=== PATIENT | female | born 1940 | race Caucasian/White ===

== ENCOUNTER 2017-03-25 15:29 | Inpatient (IN) ==
--- NOTE | 2017-03-25 15:48 | Emergency Department Report ---
Medical Clearance HPI - General Chief complaint: Medical Clearance Stated complaint: [facility] Time Seen by Provider: 03/25/17 15:44 Source: patient Mode of arrival: ambulatory Limitations: no limitations - History of Present Illness HPI Narrative: She presents to ER today for medical clearance. She has been working with the [facility] for admission due to depression and anxiety. Had been evaluated in ER a week ago but had a UTI and so was sent home with treatment and advised to come back after it was fully treated. She denies any issues/ concerns today. MD complaint: medical clearance requested Onset (ago): unknown Place: home Traumatic Symptoms: denies traumatic injury Associated Symptoms: denies other symptoms Treatments Prior to Arrival: none Home medications: Home Medications Medication Instructions Recorded Confirmed Simvastatin [Zocor] 20 mg PO DAILY #0 06/13/08 03/25/17 cloNIDine HCl [Clonidine HCl] 0.1 mg PO NOON #0 06/13/08 03/25/17 Cholecalciferol (Vitamin D3) 1,000 unit PO DAILY 03/19/17 03/25/17 [Vitamin D3] Cyclobenzaprine [Flexeril] 10 mg PO TID PRN 03/19/17 03/25/17 Diclofenac Sodium 50 mg PO BID 03/19/17 03/25/17 Escitalopram [Lexapro] 10 mg PO DAILY 03/19/17 03/25/17 Fish Oil/Dha/Epa [Fish Oil 1,200 1 cap PO DAILY 03/19/17 03/25/17 mg Fish Oil] Metoprolol Tartrate [Lopressor] 25 mg PO BID 03/19/17 03/25/17 Trazodone [Desyrel] 50 mg PO HS 03/19/17 03/25/17 diphenhydrAMINE HCl [Zzzquil] 25 mg PO HS PRN 03/25/17 03/25/17 Allergies/Adverse reactions: Allergies Allergy/AdvReac Type Severity Reaction Status Date / Time codeine AdvReac Unknown Verified 03/19/17 14:19 Review of Systems ENT: Denies: ear pain, throat pain, congestion Cardiovascular: Denies: chest pain, palpitations, dyspnea on exertion Respiratory: Denies: cough, dyspnea, wheezes Gastrointestinal: Denies: abdominal pain, nausea, vomiting, diarrhea Integumentary: Denies: rash Neurological: Denies: headache, weakness, numbness, paresthesias [facility] Patient Stated Medical History Other HEENT Yes: Wears glasses Hypertension Yes Other GI Yes: IBS, gallstones Hx Urinary Tract Infection Yes Other Hematologic Yes: Daily 81mg ASA Other Musculoskeletal Yes: Fx fibula, arthritis Depression Yes Anxiety - Social History Smoking status: Never smoker Physical Exam - Limitations Limitations: no limitations - General General appearance: alert, in no apparent distress - Normal Exams: ENMT:: No facial trauma, nasal exudates, pharyngeal erythema, or exudates are noted Chest/Respirations:: Clear all borges, with good airflow, and symmetry bilaterally Cardiovascular:: Regular rate and rhythm, without murmur or gallop, Pulses 2+ all extremities, capillary refill, <2 seconds all extremities Abdomen:: Bowel sounds positive, soft, non-tender, non-distended, no hepatosplenomegaly, masses or bruits noted Lymphatic:: No lymphadenopathy, or lymphedema noted Integumentary:: No rashes, hives, or bruising noted Neurological:: Patient is alert, and oriented, cranial nerves, motor/sensory/ cerebellar, exams w/o gross deficits, to observation Psychiatric:: Patient exhibits, appropriate attention, emotion and affect Course Vital Signs Temperature 97.7 F 03/25/17 15:42 Pulse Rate 75 03/25/17 15:42 Respiratory Rate 20 03/25/17 15:42 Blood Pressure 164/71 H 03/25/17 15:42 Pulse Oximetry 99 03/25/17 15:42 Temperature 97.7 F 03/25/17 15:42 Pulse Rate 75 03/25/17 15:42 Respiratory Rate 20 03/25/17 15:42 Blood Pressure 164/71 H 03/25/17 15:42 Pulse Oximetry 99 03/25/17 15:42 Medical Clearance - [facility] Narrative Medical decision making narrative: DD: anxiety, depression Labs and UA today are clear. Will medically clear at this time for [facility] admission. - Differential Diagnosis Likely: urinary tract infection - Lab Data Result diagrams: 03/25/17 16:07 03/25/17 16:07 Lab Results 03/25/17 03/25/17 03/25/17 Range/Units 16:05 16:07 16:07 WBC 5.9 (4.5-11.0) T/MM3 RBC 3.65 L (4.00-5.20) M/MM3 Hgb 11.1 L (12-16) GM/DL Hct 32.9 L (36-46) % MCV 90.1 (80-100) UM3 MCH 30.4 (26-34) UUG MCHC 33.7 (31-37) GM/DL RDW Std Deviation 37.5 (36.9-50.2) FL Plt Count 329 (130-400) T/MM3 MPV 8.8 L (9.4-12.4) UM3 Immature Gran % (Auto) 0.3 (0.0-0.5) % Neut % (Auto) 57.1 (33-66) % Lymph % (Auto) 26.3 (23-45) % [place] % (Auto) 14.0 H (0-9.0) % Eos % (Auto) 2.0 (0-4) % Baso % (Auto) 0.3 (0-2) % Neut # (Auto) 3.3 (1.8-7.7) T/MM3 Lymph # (Auto) 1.5 (1-4.8) T/MM3 [place] # (Auto) 0.8 (0-0.8) T/MM3 Eos # (Auto) 0.1 (0-0.5) T/MM3 Baso # (Auto) 0.0 (0-0.2) T/MM3 Abs Immat Gran (auto) 0.02 (0.00-0.03) T/MM3 Turbidity < 20 (0-20) Sodium 131 L (134-144) MEQ/L Potassium 4.1 (3.6-5) MEQ/L Chloride 94 L (98-107) MEQ/L Carbon Dioxide 30 (22-30) MEQ/L Anion Gap 7 (5-15) MEQ/L BUN 16.0 (7-17) MG/DL Creatinine 0.9 (0.7-1.2) MG/DL GFR Calculation 61 BUN/Creatinine Ratio 18 (6-26) RATIO Glucose 115 H (65-110) MG/DL Calculated Osmolality 255 L (261-280) MOSM/KG Calcium 9.2 (8.4-10.2) MG/DL Total Bilirubin 0.30 (0.20-1.30) MG/DL Icterus Index < 2 (0-7) AST 18 (14-36) U/L ALT 33 (9-52) U/L Alkaline Phosphatase 95 (38-126) U/L Total Protein 6.7 (6.3-8.2) G/DL Albumin 3.6 (3.5-5.0) G/DL Globulin 3.1 (2.4-3.6) G/DL Albumin/Globulin Ratio 1.2 (1.1-2.2) RATIO Specimen Hemolysis < 15 (0-25) Ur Collection Type Urine, clean catch Urine Color Yellow (YELLOW) Urine Clarity Clear Urine pH 7.5 (5.0-8.0) Ur Specific [place] <=1.005 L (1.015-1.025) Urine Protein Negative (NEGATIVE) Urine Glucose (UA) Negative (NEGATIVE) Urine Ketones Negative (NEGATIVE) Urine Occult Blood Negative (NEGATIVE) Urine Nitrate Negative (NEGATIVE) Urine Bilirubin Negative (NEGATIVE) Urine Urobilinogen 0.2 (NORMAL) EU/DL Ur Leukocyte Esterase Negative (NEGATIVE) Urinalysis Comment Microscopic not ind. Disposition Clinical Impression: Depression Qualifiers: Depression Type: other depression Qualified Code(s): F32.89 - Other specified depressive episodes Disposition: 63 To [facility] Condition: Stable Prescriptions: No Action Simvastatin [Zocor] 20 mg PO DAILY #0 Metoprolol Tartrate [Lopressor] 25 mg PO BID Diclofenac Sodium 50 mg PO BID Escitalopram [Lexapro] 10 mg PO DAILY Trazodone [Desyrel] 50 mg PO HS Cholecalciferol (Vitamin D3) [Vitamin D3] 1,000 unit PO DAILY cloNIDine HCl [Clonidine HCl] 0.1 mg PO NOON #0 Cyclobenzaprine [Flexeril] 10 mg PO TID PRN PRN Reason: Prn Orders Fish Oil/Dha/Epa [Fish Oil 1,200 mg Fish Oil] 1 cap PO DAILY diphenhydrAMINE HCl [Zzzquil] 25 mg PO HS PRN PRN Reason: Insomnia Referrals: Philippe Hood MD [Other] Time of Disposition: 16:43 - Seen By: [facility]
[2017-03-25] MEDS ORDERED: HYDROCODONE/APAP 5mg/325mg TABLET PO ONE (16:22)
[2017-03-25] MEDS ORDERED: HALOPERIDOL 0.5 MG TABLET PO PRN (16:47)
[2017-03-25] MEDS ORDERED: HALOPERIDOL 5 MG/ML INJECTION IM PRN (16:47)
[2017-03-25 17:24] VITALS: BMI 22.8
[2017-03-25] MEDS: LORazepam 0.5 MG TABLET PO PRN (19:03)
--- NOTE | 2017-03-25 19:21 | 24 Hour Neuropsychiatic Eval ---
Date of Admission: 03/25/17 16:56 Chief complaint: "Im depressed" History of Present Illness: HPI: 76 Y/O CF with a hx of anxiety and depression sent from [place] where she was living independently for increasing depression and morbid thoughts. STRESSORS: Pt states she has been dealing with knee pain and will have knee replacement soon. She is planning to move to [place] soon which is stressful. Worries about being a burden for her kids. PSYCH ROS: Pt reports feeling depressed with low interest and motivation and increased need for sleep. She reports some issues staying asleep. She reports having high anxiety and some panic type symptoms at times. She denies [place] or psychosis. PAST PSYCH: She has a hx of anxiety and depression. States she was seen at her local mental health center about 5 years ago. She hs recently been on lexapro and Trazodone which she feels have been helpful. She denies ever trying to harm herself and has never been in a psychiatric hospital. [facility] Patient Stated Medical History Other HEENT Yes: Wears glasses Hypertension Yes Other GI Yes: IBS, gallstones Hx Urinary Tract Infection Yes Other Hematologic Yes: Daily 81mg ASA Other Musculoskeletal Yes: Fx fibula, arthritis Depression Yes - Social History Smoking status: Never smoker Review of Systems - Musculoskeletal Musculoskeletal: Present: joint swelling - Psychiatric Psychiatric: Present: anhedonia, anxiety, depression, mood swings Mental Status Exam Vitals: Last Vital Signs Temp 97.5 F 03/25/17 17:10 Pulse 76 03/25/17 17:10 Resp 20 03/25/17 17:10 BP 142/76 H 03/25/17 17:10 Pulse Ox 99 03/25/17 17:10 Height: 1.68 m Weight: 64.3 kg - Mental Status Exam Muscle Strength/Tone: Normal Dressing: Casual Grooming: Good Attitude: Cooperative Motor Activity: Retardation Eye Contact: Fair Speech: Slowed Volume: Soft Rhythm: Appropriate Rhythm Orientation: Oriented X4 Mood: Depressed Affect: Depressed Rate of Thoughts: Appropriate Rate, Delayed Thought Organization: Organized Associations: Intact Abstract Reasoning: Intact, able to abstract Thought Content: Normal, Helplessness Perception/Psychotic: Perception Normal Language: Naming Intact Fund of Knowledge: Appropriate Memory: Grossly Intact Suicidal Ideation: Intermittent Homicidal Ideation: None Insight: Poor Judgement: Poor Impulse Control: Poor - Laboratory Result Diagrams: 03/25/17 16:07 03/25/17 16:07 Assessment and Plan (1) Major depressive disorder, recurrent episode with anxious distress Problem details: Severe Current visit: Yes Status: Acute Continue to evaluate and stabilize. Will restart Trazodone and increase Lexapro to 20mg PO daily. Hospitalist consult
[2017-03-25] MEDS: TRAZODONE 50 MG TABLET PO SCH (20:42)
[2017-03-25] MEDS: SIMVASTATIN 20 MG TABLET PO SCH (20:42)
[2017-03-25] MEDS: ACETAMINOPHEN 325 MG TABLET PO PRN (20:49)
[2017-03-26] MEDS: ACETAMINOPHEN 325 MG TABLET PO PRN (03:45)
[2017-03-26] MEDS: DICLOFENAC SODIUM DR 25 MG TABLET PO SCH ×2 (08:47→17:15)
[2017-03-26] MEDS: ESCITALOPRAM 20 MG TABLET PO SCH (08:50)
[2017-03-26] MEDS ORDERED: PNEUMOCOCCAL 13 VACCINE 0.5ml INJECTION IM ONE (09:00)
[2017-03-26] MEDS ORDERED: ESCITALOPRAM 10 MG TABLET PO SCH ×2 (09:00)
--- NOTE | 2017-03-26 10:43 | Progress Note ---
- Date 03/26/17 Subjective: Patient is seen today sitting in the TV room. She is having knee pain which Tylenol is not controlling. She is scheduled to have surgery April 08. She reports her regular doctor has given her Lortab for pain in the past. She tolerates it well per her report. She would be willing to try Lidoderm patches as well. No chest pain, shortness of breath, nausea or vomiting. Overall reports she's doing well other than her knee pain. Objective Vital signs: Temperature 97.0 F 03/26/17 08:45 Pulse Rate 100 03/26/17 08:45 Respiratory Rate 18 03/26/17 08:45 Blood Pressure 146/70 H 03/26/17 08:45 Pulse Oximetry 98 03/26/17 08:45 Height/Weight/BMI: Height 1.68 m Weight 64.3 kg Body Mass Index 22.8 - Constitutional Present: no acute distress, well nourished, well developed - Routine HEENT Exam Head: Present: normocephalic - Routine Respiratory Exam Present: CTA bilaterally. Absent: wheezes - Routine Cardiovascular Exam Present: RRR, S1, S2. Absent: murmur - Routine Abdominal Exam Present: soft, normoactive bowel sounds, non distended. Absent: tenderness - Routine Extremities Exam Present: no edema, normal capillary refill - Routine Musculoskeletal Exam Musculoskeletal: Present: other (degenerative deformity to right knee. No effusion or erythema or warmth.) - Routine Skin Exam Present: dry, warm - Routine Neurological Exam Present: alert, normal speech - Routine Lymphatic Exam Lymphatic: Absent: adenopathy - Routine Psychiatric Exam Present: normal affect, cooperative Results - Labs CBC & Chem 7: 03/25/17 16:07 03/25/17 16:07 Hospital Course Summary Disclaimer: The visit summary below is not to be considered part of the above Progress Note.
--- NOTE | 2017-03-26 10:49 | History & Physical Report ---
<Marisa Fong - Last Filed: 03/26/17 11:16> History of Present Illness Date: 03/26/17 Chief complaint: depression and anxiety HPI: Patient is a 76-year-old female admitted to [facility] yesterday afternoon due to depression and anxiety. She lives alone in her own home in [place], [place]. She has been more anxious and depressed. Her daughter visited her on 03/14/17 and brought patient home with her due to concerns about the severity of her mom' s depression and anxiety. Patient is anxious about upcoming knee surgery, future plans, and possible move. She worries about being a burden to her family. She's not been sleeping well. She's had a 6-7 pound weight loss in the last 1-1/2 months. Patient recently established care with Dr. Flash Arzola in [place]. There is mention in his office visit that there may be some underlying dementia. She has had a recent UTI which has been treated. She's been having some palpitations but no chest pain. Her doctor offered a Holter monitor, but daughter and patient preferred to wait until after she had her mental health evaluation, thinking the palpitations may be related to nightmares she's been having. Patient is seen today sitting in the TV room. She is having knee pain which Tylenol is not controlling. She is scheduled to have surgery April 08. She reports her regular doctor has given her Lortab for pain in the past. She tolerates it well per her report. She would be willing to try Lidoderm patches as well. No chest pain, shortness of breath, nausea or vomiting. Overall reports she's doing well other than her knee pain. Review of Systems All systems PM: 10-point ROS was reviewed, no additional remarkable complaints except - Constitutional Constitutional: Present: other (insomnia and nightmares) - Cardiovascular Cardiovascular: Present: palpitations - Musculoskeletal Musculoskeletal: Present: other (right knee pain) - Psychiatric Psychiatric: Present: anxiety, depression PFSH Medical History Anxiety Depression Hypertension Hyperlipidemia Osteoarthritis Insomnia IBS/Constipation Surgical History: Cholecystectomy 06/07/97 Family History: Father age 75 of appendicitis. CVA. Mother at age 83 due to complications of CHF - Social History Smoking status: Never smoker Substance use type: does not use Alcohol intake frequency: does not drink Housing: house Household members: none Current occupational status: retired Does patient use chewing tobacco?: No Social history: PCP-Flash Arzola D.O. ([facility]) Medications Home Medications Medication Instructions Recorded Confirmed Type Simvastatin [Zocor] 20 mg PO DAILY #0 06/13/08 03/25/17 History cloNIDine HCl [Clonidine HCl] 0.1 mg PO NOON #0 06/13/08 03/25/17 History Cholecalciferol (Vitamin D3) 1,000 unit PO DAILY 03/19/17 03/25/17 History [Vitamin D3] Cyclobenzaprine [Flexeril] 10 mg PO TID PRN 03/19/17 03/25/17 History Diclofenac Sodium 50 mg PO BID 03/19/17 03/25/17 History Escitalopram [Lexapro] 10 mg PO DAILY 03/19/17 03/25/17 History Fish Oil/Dha/Epa [Fish Oil 1,200 1 cap PO DAILY 03/19/17 03/25/17 History mg Fish Oil] Metoprolol Tartrate [Lopressor] 25 mg PO BID 03/19/17 03/25/17 History Trazodone [Desyrel] 50 mg PO HS 03/19/17 03/25/17 History diphenhydrAMINE HCl [Zzzquil] 25 mg PO HS PRN 03/25/17 03/25/17 History Allergies Allergy/AdvReac Type Severity Reaction Status Date / Time codeine AdvReac Unknown Verified 03/19/17 14:19 Exam Vital Signs: Temperature 97.0 F 03/26/17 08:45 Pulse Rate 100 03/26/17 08:45 Respiratory Rate 18 03/26/17 08:45 Blood Pressure 146/70 H 03/26/17 08:45 Pulse Oximetry 98 03/26/17 08:45 Height/Weight/BMI: Height 1.68 m Weight 64.3 kg Body Mass Index 22.8 - Constitutional Present: no acute distress, well nourished, well developed - Routine HEENT Exam Head: Present: normocephalic - Routine Neck Exam Present: supple. Absent: lymphadenopathy - Routine Respiratory Exam Present: CTA bilaterally. Absent: wheezes - Routine Cardiovascular Exam Present: RRR, S1, S2. Absent: murmur - Routine Abdominal Exam Present: soft, normoactive bowel sounds, non distended. Absent: tenderness - Routine Extremities Exam Present: no edema, normal capillary refill - Detailed Lower Extremity Exam Knee: Right deformity (related to degenerative arthritis) Comments: She has no redness or warmth or effusion to the right knee. - Routine Skin Exam Present: dry, warm - Routine Neurological Exam Present: alert, moving all extremities, normal speech. Absent: tremors - Routine Psychiatric Exam Present: normal affect, normal thought process, cooperative Results - Labs CBC & Chem 7: 03/25/17 16:07 03/25/17 16:07 Assessment and Plan (1) Major depressive disorder, recurrent episode with anxious distress Problem details: Severe Current visit: Yes Status: Acute Assessment and Plan: Assessment Anxiety Depression Hyponatremia-POA Anemia, unspecified Hypertension Palpitations Hyperlipidemia Osteoarthritis- Right Knee pain currently IBS Plan Agree with [facility] admission for psychiatric treatment of her depression and anxiety. Continue home medicines for her hypertension and hyperlipidemia. Tylenol is not controlling her knee pain. She is taking diclofenac routinely. Order given for Lidoderm patches and [place] prn. Regarding her anemia, previous hemoglobin on 03/15/17 was 12.9. Will recheck a CBC and continue to follow. Will start ranitidine for GI prophylaxis given that she is on the diclofenac. Assuming she is not dropping significantly during her stay, this can be worked up outpatient. Repeat BMP tomorrow to follow-up on sodium levels. Sodium level on 03/15/17 was 129, but in 2012 was 141. This could be related to her SSRI. Given her palpitations, will check a TSH. Last record of TSH that I could find was 2012. It was normal at 3.5. We will continue to follow patient throughout her stay. Thank you for the consult. Patient's care to be returned to Dr. Flash Harvey on discharge. Hospital Course Summary Disclaimer: The visit summary below is not to be considered part of the above Progress Note. Hospital Course: Assessment Anxiety Depression Hyponatremia-POA Anemia, unspecified Hypertension Palpitations Hyperlipidemia Osteoarthritis- Right Knee pain currently IBS 03/26/17-hospitalist consult Agree with [facility] admission for psychiatric treatment of her depression and anxiety. Continue home medicines for her hypertension and hyperlipidemia. Tylenol is not controlling her knee pain. She is taking diclofenac routinely. Order given for Lidoderm patches and [place] prn. Regarding her anemia, previous hemoglobin on 03/15/17 was 12.9. Will recheck a CBC and continue to follow. Will start ranitidine for GI prophylaxis given that she is on the diclofenac. Assuming she is not dropping significantly during her stay, this can be worked up outpatient. Repeat BMP tomorrow to follow-up on sodium levels. Sodium level on 03/15/17 was 129, but in 2012 was 141. This could be related to her SSRI. Given her palpitations, will check a TSH. Last record of TSH that I could find was 2012. It was normal at 3.5. We will continue to follow patient throughout her stay. Thank you for the consult. Patient's care to be returned to Dr. Flash Harvey on discharge. <Elza Paris - Last Filed: 03/26/17 18:24> History of Present Illness Date: 03/26/17 [facility] Patient Stated Medical History Other HEENT Yes: Wears glasses Hypertension Yes Other GI Yes: IBS, gallstones Hx Urinary Tract Infection Yes Other Hematologic Yes: Daily 81mg ASA Other Musculoskeletal Yes: Fx fibula, arthritis Depression Yes Exam Vital Signs: Temperature 96.6 F L 03/26/17 15:59 Pulse Rate 80 03/26/17 15:59 Respiratory Rate 18 03/26/17 15:59 Blood Pressure 131/70 03/26/17 15:59 Pulse Oximetry 100 03/26/17 15:59 Height/Weight/BMI: Height 5 ft 6 in Weight 141 lb 12.116 oz Body Mass Index 22.8 Results - Labs CBC & Chem 7: 03/25/17 16:07 03/25/17 16:07 Assessment and Plan (1) Major depressive disorder, recurrent episode with anxious distress Problem details: Severe Current visit: Yes Status: Acute Assessment and Plan: I have independently evaluated and examined this patient. I reviewed the chart, the patient's history, and the FLARE BREAKER/PA's documented findings as above. We discussed and formulated the assessment and plan as above with additions as below. The patient was seen sitting in the common room. She does complain of right knee pain and would like to have her surgery done sooner if at all possible. Otherwise without complaints. In general, the patient is alert and oriented 3, cooperative with exam, and in no respiratory distress. HEENT: Head is atraumatic, normocephalic, no conjunctival petechiae, no oral thrush, mucous membranes are moist and pink. Lungs: Clear to auscultation without wheezes, crackles or rhonchi CV: Regular rate and rhythm without murmur Abdomen: Soft, nontender, bowel sounds are present, there is no guarding no rebound. Extremities: No clubbing, no cyanosis, no edema. Right knee with swelling, brace in place Skin: Warm and dry no sign of rash Agree with plans as outlined above. Hospital Course Summary Disclaimer: The visit summary below is not to be considered part of the above Progress Note.
[2017-03-26] MEDS: HYDROCODONE/APAP 5mg/325mg TABLET PO PRN (12:31)
[2017-03-26] MEDS: LIDOCAINE 5% PATCH TOP SCH (12:32)
[2017-03-26] MEDS: Bisacodyl EC TAB 5 MG TABLET PO PRN (12:35)
[2017-03-26] MEDS ORDERED: PNEUMOCOCCAL VAC ADMIN CHARGE INJ ONE (12:54)
--- NOTE | 2017-03-26 18:17 | Neuropsych Progress Note ---
[facility] Subjective Date: 03/26/17 - Sujective/Severity of Illness Medications: Acetaminophen (Tylenol) 325 - 650 mg PO Q5H PRN PRN Reason: Discomfort Last Admin: 03/26/17 03:45 Dose: 650 mg Hydrocodone Bitart/Acetaminophen ([place] 5/325) 1 tab PO Q4H PRN PRN Reason: right knee Pain Last Admin: 03/26/17 12:31 Dose: 1 tab Bisacodyl (Dulcolax) 10 mg PO DAILY PRN PRN Reason: Constipation Last Admin: 03/26/17 12:35 Dose: 10 mg Clonidine HCl (Catapres) 0.1 mg PO NOON [facility] Last Admin: 03/26/17 12:09 Dose: 0.1 mg Diclofenac Sodium (Voltaren) 50 mg PO BIDWM [facility] Last Admin: 03/26/17 17:15 Dose: 50 mg Escitalopram Oxalate (Lexapro) 20 mg PO DAILY [facility] Last Admin: 03/26/17 08:50 Dose: 20 mg Haloperidol (Haldol) 0.5 mg PO Q6H PRN PRN Reason: Extreme agitation Haloperidol Lactate (Haldol) 0.5 mg IM Q6H PRN PRN Reason: Extreme agitation Lidocaine (Lidoderm) 1 patch TOP DAILY [facility] Last Admin: 03/26/17 12:32 Dose: 1 patch Lidocaine HCl/Dextrose (Lidoderm Patch Removal) 1 removal TOP 2100 [facility] Lorazepam (Ativan Inj) 0.5 mg IM Q6H PRN PRN Reason: Extreme agitation Lorazepam (Ativan) 0.5 mg PO Q6H PRN PRN Reason: Extreme agitation Last Admin: 03/25/17 19:03 Dose: 0.5 mg Magnesium Hydroxide (Mom) 30 ml PO DAILY PRN PRN Reason: Constipation Last Admin: 03/25/17 18:32 Dose: 30 ml Metoprolol Tartrate (Lopressor) 25 mg PO BIDWM [facility] Last Admin: 03/26/17 17:15 Dose: 25 mg Ranitidine HCl (Zantac) 150 mg PO BID [facility] Simvastatin (Zocor) 20 mg PO HS [facility] Last Admin: 03/25/17 20:42 Dose: 20 mg Trazodone HCl (Desyrel) 50 mg PO HS [facility] Last Admin: 03/25/17 20:42 Dose: 50 mg Subjective: Pt seen and chart examined. Nursing reports pt is doing well. Sleeping well and has a good appetite. On face to face the pt states she feels a little better. Mood improved. Some anxiety at times but it is short lived. Tolerating increase in meds. Denies S/I Start Time: 17:15 Stop Time: 17:30 Mental Status Exam Vitals: Last Vital Signs Temp 96.6 F L 03/26/17 15:59 Pulse 80 03/26/17 15:59 Resp 18 03/26/17 15:59 BP 131/70 03/26/17 15:59 Pulse Ox 100 03/26/17 15:59 Height: 1.68 m Weight: 64.3 kg - Mental Status Exam Muscle Strength/Tone: Normal Dressing: Casual Grooming: Good Attitude: Cooperative Motor Activity: Retardation Eye Contact: Fair Speech: Slowed Volume: Soft Rhythm: Appropriate Rhythm Orientation: Oriented X4 Mood: Depressed Rate of Thoughts: Appropriate Rate, Delayed Thought Organization: Organized Associations: Intact Abstract Reasoning: Intact, able to abstract Thought Content: Normal, Helplessness Perception/Psychotic: Perception Normal Language: Naming Intact Fund of Knowledge: Appropriate Memory: Grossly Intact Suicidal Ideation: Intermittent Homicidal Ideation: None Insight: Poor Judgement: Poor Impulse Control: Poor - Laboratory Result Diagrams: 03/25/17 16:07 03/25/17 16:07 Assessment and Plan (1) Major depressive disorder, recurrent episode with anxious distress Problem details: Severe Current visit: Yes Status: Acute Hospital Course Summary Disclaimer: The visit summary below is not to be considered part of the above Progress Note. Hospital Course: Assessment Anxiety Depression Hyponatremia-POA Anemia, unspecified Hypertension Palpitations Hyperlipidemia Osteoarthritis- Right Knee pain currently IBS 03/26/17-hospitalist consult Agree with [facility] for psychiatric treatment of her depression and anxiety. Continue home medicines for her hypertension and hyperlipidemia. Tylenol is not controlling her knee pain. She is taking diclofenac routinely. Order given for Lidoderm patches and [place] prn. Regarding her anemia, previous hemoglobin on 03/15/17 was 12.9. Will recheck a CBC and continue to follow. Will start ranitidine for GI prophylaxis given that she is on the diclofenac. Assuming she is not dropping significantly during her stay, this can be worked up outpatient. Repeat BMP tomorrow to follow-up on sodium levels. Sodium level on 03/15/17 was 129, but in 2012 was 141. This could be related to her SSRI. Given her palpitations, will check a TSH. Last record of TSH that I could find was 2012. It was normal at 3.5. We will continue to follow patient throughout her stay. Thank you for the consult. Patient's care to be returned to Dr. Flash Harvey on discharge. 03/26/17 18:17 Pt improving. Continue current care
[2017-03-26] MEDS: SIMVASTATIN 20 MG TABLET PO SCH (22:07)
[2017-03-26] MEDS: RANITIDINE 150 MG TABLET PO SCH (22:07)
[2017-03-26] MEDS: TRAZODONE 50 MG TABLET PO SCH (22:07)
[2017-03-26] MEDS: LIDOCAINE PATCH REMOVAL TOP SCH (22:08)
[2017-03-27] MEDS: HYDROCODONE/APAP 5mg/325mg TABLET PO PRN ×3 (03:51→22:16)
[2017-03-27] MEDS ORDERED: BISACODYL 10 MG SUPPOSITORY RECTALLY PRN (08:12)
[2017-03-27] MEDS: DICLOFENAC SODIUM DR 25 MG TABLET PO SCH ×2 (09:40→17:55)
[2017-03-27] MEDS: LIDOCAINE 5% PATCH TOP SCH (09:40)
[2017-03-27] MEDS: RANITIDINE 150 MG TABLET PO SCH ×2 (09:42→21:00)
[2017-03-27] MEDS: ESCITALOPRAM 20 MG TABLET PO SCH (09:42)
--- NOTE | 2017-03-27 10:50 | Neuropsych Progress Note ---
[facility] Subjective Date: 03/27/17 - Sujective/Severity of Illness Medications: Acetaminophen (Tylenol) 325 - 650 mg PO Q5H PRN PRN Reason: Discomfort Last Admin: 03/26/17 03:45 Dose: 650 mg Hydrocodone Bitart/Acetaminophen ([place] 5/325) 1 tab PO Q4H PRN PRN Reason: right knee Pain Last Admin: 03/27/17 03:51 Dose: 1 tab Bisacodyl (Dulcolax) 10 mg PO DAILY PRN PRN Reason: Constipation Last Admin: 03/26/17 12:35 Dose: 10 mg Bisacodyl (Dulcolax) 10 mg RECTALLY DAILY PRN PRN Reason: Constipation Last Admin: 03/27/17 08:16 Dose: 10 mg Clonidine HCl (Catapres) 0.1 mg PO NOON [facility] Last Admin: 03/26/17 12:09 Dose: 0.1 mg Diclofenac Sodium (Voltaren) 50 mg PO BIDWM [facility] Last Admin: 03/27/17 09:40 Dose: 50 mg Escitalopram Oxalate (Lexapro) 20 mg PO DAILY [facility] Last Admin: 03/27/17 09:42 Dose: 20 mg Haloperidol (Haldol) 0.5 mg PO Q6H PRN PRN Reason: Extreme agitation Haloperidol Lactate (Haldol) 0.5 mg IM Q6H PRN PRN Reason: Extreme agitation Lidocaine (Lidoderm) 1 patch TOP DAILY [facility] Last Admin: 03/27/17 09:40 Dose: 1 patch Lidocaine HCl/Dextrose (Lidoderm Patch Removal) 1 removal TOP 2100 [facility] Last Admin: 03/26/17 22:08 Dose: 1 removal Lorazepam (Ativan Inj) 0.5 mg IM Q6H PRN PRN Reason: Extreme agitation Lorazepam (Ativan) 0.5 mg PO Q6H PRN PRN Reason: Extreme agitation Last Admin: 03/25/17 19:03 Dose: 0.5 mg Magnesium Hydroxide (Mom) 30 ml PO DAILY PRN PRN Reason: Constipation Last Admin: 03/25/17 18:32 Dose: 30 ml Metoprolol Tartrate (Lopressor) 25 mg PO BIDWM [facility] Last Admin: 03/27/17 09:42 Dose: 25 mg Ranitidine HCl (Zantac) 150 mg PO BID [facility] Last Admin: 03/27/17 09:42 Dose: 150 mg Simvastatin (Zocor) 20 mg PO [facility] Last Admin: 03/26/17 22:07 Dose: 20 mg Trazodone HCl (Desyrel) 50 mg PO [facility] Last Admin: 03/26/17 22:07 Dose: 50 mg Subjective: Pt seen and chart examined. Nursing reports pt is doing well. Sleeping well and has a good appetite. On face to face the pt states she is feeling better. Mood is improving and anxiety as well. Denies S/I. Tolerating meds. Start Time: 10:30 Stop Time: 10:45 Mental Status Exam Vitals: Last Vital Signs Temp 98 F 03/27/17 09:00 Pulse 101 H 03/27/17 09:00 Resp 18 03/27/17 09:00 BP 137/69 03/27/17 09:00 Pulse Ox 99 03/27/17 09:00 Height: 1.68 m Weight: 64.3 kg - Mental Status Exam Muscle Strength/Tone: Normal Dressing: Casual Grooming: Good Attitude: Cooperative Motor Activity: Retardation Eye Contact: Fair Speech: Slowed Volume: Soft Rhythm: Appropriate Rhythm Orientation: Oriented X4 Mood: Depressed Rate of Thoughts: Appropriate Rate, Delayed Thought Organization: Organized Associations: Intact Abstract Reasoning: Intact, able to abstract Thought Content: Normal, Helplessness Perception/Psychotic: Perception Normal Language: Naming Intact Fund of Knowledge: Appropriate Memory: Grossly Intact Suicidal Ideation: Intermittent Homicidal Ideation: None Insight: Poor Judgement: Poor Impulse Control: Poor - Laboratory Result Diagrams: 03/25/17 16:07 03/27/17 07:48 Laboratory Results - last 24 hr 03/27/17 07:48 Turbidity < 20 Sodium 132 L Potassium 4.3 Chloride 97 L Carbon Dioxide 27 Anion Gap 8 BUN 13.0 Creatinine 0.8 GFR Calculation 69 BUN/Creatinine Ratio 16 Glucose 105 Calculated Osmolality 255 L Calcium 8.3 L D Icterus Index < 2 Specimen Hemolysis < 15 Assessment and Plan (1) Major depressive disorder, recurrent episode with anxious distress Problem details: Severe Current visit: Yes Status: Acute Hospital Course Summary Disclaimer: The visit summary below is not to be considered part of the above Progress Note. Hospital Course: Assessment Anxiety Depression Hyponatremia-POA Anemia, unspecified Hypertension Palpitations Hyperlipidemia Osteoarthritis- Right Knee pain currently IBS 03/26/17-hospitalist consult Agree with [facility] admission for psychiatric treatment of her depression and anxiety. Continue home medicines for her hypertension and hyperlipidemia. Tylenol is not controlling her knee pain. She is taking diclofenac routinely. Order given for Lidoderm patches and [place] prn. Regarding her anemia, previous hemoglobin on 03/15/17 was 12.9. Will recheck a CBC and continue to follow. Will start ranitidine for GI prophylaxis given that she is on the diclofenac. Assuming she is not dropping significantly during her stay, this can be worked up outpatient. Repeat BMP tomorrow to follow-up on sodium levels. Sodium level on 03/15/17 was 129, but in 2012 was 141. This could be related to her SSRI. Given her palpitations, will check a TSH. Last record of TSH that I could find was 2012. It was normal at 3.5. We will continue to follow patient throughout her stay. Thank you for the consult. Patient's care to be returned to Dr. Flash Harvey on discharge. 03/26/17 18:17 Pt improving. Continue current care 03/27/17 10:50 Pt continues to improve. Continues to have some anxiety and depression. Continue current care
[2017-03-27] MEDS: POLYETHYL GLYCOL 3350 17gm PACKET PO SCH (12:50)
[2017-03-27] MEDS: SIMVASTATIN 20 MG TABLET PO SCH (21:01)
[2017-03-27] MEDS: LIDOCAINE PATCH REMOVAL TOP SCH (21:01)
[2017-03-27] MEDS: TRAZODONE 50 MG TABLET PO SCH (21:01)
[2017-03-28] MEDS: DICLOFENAC SODIUM DR 25 MG TABLET PO SCH ×2 (08:07→17:15)
[2017-03-28] MEDS: LIDOCAINE 5% PATCH TOP SCH (08:10)
[2017-03-28] MEDS: ESCITALOPRAM 20 MG TABLET PO SCH (08:10)
[2017-03-28] MEDS: POLYETHYL GLYCOL 3350 17gm PACKET PO SCH (08:10)
[2017-03-28] MEDS: RANITIDINE 150 MG TABLET PO SCH ×2 (08:10→22:28)
--- NOTE | 2017-03-28 11:40 | Neuropsych Progress Note ---
[facility] Subjective Date: 03/28/17 - Sujective/Severity of Illness Medications: Acetaminophen (Tylenol) 325 - 650 mg PO Q5H PRN PRN Reason: Discomfort Last Admin: 03/26/17 03:45 Dose: 650 mg Hydrocodone Bitart/Acetaminophen ([place] 5/325) 1 tab PO Q4H PRN PRN Reason: right knee Pain Last Admin: 03/27/17 22:16 Dose: 1 tab Bisacodyl (Dulcolax) 10 mg PO DAILY PRN PRN Reason: Constipation Last Admin: 03/26/17 12:35 Dose: 10 mg Bisacodyl (Dulcolax) 10 mg RECTALLY DAILY PRN PRN Reason: Constipation Last Admin: 03/27/17 08:16 Dose: 10 mg Clonidine HCl (Catapres) 0.1 mg PO NOON [facility] Last Admin: 03/27/17 12:21 Dose: 0.1 mg Diclofenac Sodium (Voltaren) 50 mg PO BIDWM [facility] Last Admin: 03/28/17 08:07 Dose: 50 mg Escitalopram Oxalate (Lexapro) 20 mg PO DAILY [facility] Last Admin: 03/28/17 08:10 Dose: 20 mg Haloperidol (Haldol) 0.5 mg PO Q6H PRN PRN Reason: Extreme agitation Haloperidol Lactate (Haldol) 0.5 mg IM Q6H PRN PRN Reason: Extreme agitation Lidocaine (Lidoderm) 1 patch TOP DAILY [facility] Last Admin: 03/28/17 08:10 Dose: 1 patch Lidocaine HCl/Dextrose (Lidoderm Patch Removal) 1 removal TOP 2100 [facility] Last Admin: 03/27/17 21:01 Dose: 1 removal Lorazepam (Ativan Inj) 0.5 mg IM Q6H PRN PRN Reason: Extreme agitation Lorazepam (Ativan) 0.5 mg PO Q6H PRN PRN Reason: Extreme agitation Last Admin: 03/25/17 19:03 Dose: 0.5 mg Magnesium Hydroxide (Mom) 30 ml PO DAILY PRN PRN Reason: Constipation Last Admin: 03/25/17 18:32 Dose: 30 ml Metoprolol Tartrate (Lopressor) 25 mg PO BIDWM [facility] Last Admin: 03/28/17 08:08 Dose: 25 mg Polyethylene Glycol (Miralax) 17 gm PO DAILY [facility] Last Admin: 03/28/17 08:10 Dose: 17 gm Ranitidine HCl (Zantac) 150 mg PO BID [facility] Last Admin: 03/28/17 08:10 Dose: 150 mg Simvastatin (Zocor) 20 mg PO [facility] Last Admin: 03/27/17 21:01 Dose: 20 mg Trazodone HCl (Desyrel) 50 mg PO [facility] Last Admin: 03/27/17 21:01 Dose: 50 mg Subjective: Pt seen and chart examined. Nursing reports pt is doing well. Sleeping well and has a good appetite. On face to face the pt states she feels a little better. Continues to worry about her knee surgery but feels her mood and anxiety are improved. Denies S/I. Tolerating meds Start Time: 10:30 Stop Time: 10:45 Mental Status Exam Vitals: Last Vital Signs Temp 98.2 F 03/28/17 08:00 Pulse 83 03/28/17 08:00 Resp 14 03/28/17 08:00 BP 128/69 03/28/17 08:00 Pulse Ox 99 03/28/17 08:00 Height: 1.68 m Weight: 64.3 kg - Mental Status Exam Muscle Strength/Tone: Normal Dressing: Casual Grooming: Good Attitude: Cooperative Motor Activity: Retardation Eye Contact: Fair Speech: Slowed Volume: Soft Rhythm: Appropriate Rhythm Orientation: Oriented X4 Mood: Depressed Rate of Thoughts: Appropriate Rate, Delayed Thought Organization: Organized Associations: Intact Abstract Reasoning: Intact, able to abstract Thought Content: Normal, Helplessness Perception/Psychotic: Perception Normal Language: Naming Intact Fund of Knowledge: Appropriate Memory: Grossly Intact Suicidal Ideation: Intermittent Homicidal Ideation: None Insight: Poor Judgement: Poor Impulse Control: Poor - Laboratory Result Diagrams: 03/25/17 16:07 03/27/17 07:48 Assessment and Plan (1) Major depressive disorder, recurrent episode with anxious distress Problem details: Severe Current visit: Yes Status: Acute Hospital Course Summary Disclaimer: The visit summary below is not to be considered part of the above Progress Note. Hospital Course: Assessment Anxiety Depression Hyponatremia-POA Anemia, unspecified Hypertension Palpitations Hyperlipidemia Osteoarthritis- Right Knee pain currently IBS 03/26/17-hospitalist consult Agree with [facility] admission for psychiatric treatment of her depression and anxiety. Continue home medicines for her hypertension and hyperlipidemia. Tylenol is not controlling her knee pain. She is taking diclofenac routinely. Order given for Lidoderm patches and [place] prn. Regarding her anemia, previous hemoglobin on 03/15/17 was 12.9. Will recheck a CBC and continue to follow. Will start ranitidine for GI prophylaxis given that she is on the diclofenac. Assuming she is not dropping significantly during her stay, this can be worked up outpatient. Repeat BMP tomorrow to follow-up on sodium levels. Sodium level on 03/15/17 was 129, but in 2012 was 141. This could be related to her SSRI. Given her palpitations, will check a TSH. Last record of TSH that I could find was 2012. It was normal at 3.5. We will continue to follow patient throughout her stay. Thank you for the consult. Patient's care to be returned to Dr. Flash Harvey on discharge. 03/26/17 18:17 Pt improving. Continue current care 03/27/17 10:50 Pt continues to improve. Continues to have some anxiety and depression. Continue current care 03/28/17 11:40 Anxiety and depression improving. Continue current care
[2017-03-28] MEDS: HYDROCODONE/APAP 5mg/325mg TABLET PO PRN (18:34)
[2017-03-28] MEDS: Bisacodyl EC TAB 5 MG TABLET PO PRN (21:07)
[2017-03-28] MEDS: TRAZODONE 50 MG TABLET PO SCH (22:28)
[2017-03-28] MEDS: SIMVASTATIN 20 MG TABLET PO SCH (22:28)
[2017-03-28] MEDS: LIDOCAINE PATCH REMOVAL TOP SCH (22:29)
[2017-03-29] MEDS: LIDOCAINE 5% PATCH TOP SCH (08:56)
[2017-03-29] MEDS: DICLOFENAC SODIUM DR 25 MG TABLET PO SCH ×2 (08:56→19:02)
[2017-03-29] MEDS: ESCITALOPRAM 20 MG TABLET PO SCH (08:56)
[2017-03-29] MEDS: RANITIDINE 150 MG TABLET PO SCH ×2 (08:56→21:16)
[2017-03-29] MEDS: POLYETHYL GLYCOL 3350 17gm PACKET PO SCH (08:57)
[2017-03-29] MEDS: Bisacodyl EC TAB 5 MG TABLET PO PRN (11:16)
--- NOTE | 2017-03-29 18:52 | Neuropsych Progress Note ---
[facility] Subjective Date: 03/29/17 - Sujective/Severity of Illness Medications: Acetaminophen (Tylenol) 325 - 650 mg PO Q5H PRN PRN Reason: Discomfort Last Admin: 03/26/17 03:45 Dose: 650 mg Hydrocodone Bitart/Acetaminophen ([place] 5/325) 1 tab PO Q4H PRN PRN Reason: right knee Pain Last Admin: 03/28/17 18:34 Dose: 1 tab Bisacodyl (Dulcolax) 10 mg PO DAILY PRN PRN Reason: Constipation Last Admin: 03/29/17 11:16 Dose: 10 mg Bisacodyl (Dulcolax) 10 mg RECTALLY DAILY PRN PRN Reason: Constipation Last Admin: 03/27/17 08:16 Dose: 10 mg Clonidine HCl (Catapres) 0.1 mg PO NOON [facility] Last Admin: 03/29/17 11:16 Dose: 0.1 mg Diclofenac Sodium (Voltaren) 50 mg PO BIDWM [facility] Last Admin: 03/29/17 08:56 Dose: 50 mg Escitalopram Oxalate (Lexapro) 20 mg PO DAILY [facility] Last Admin: 03/29/17 08:56 Dose: 20 mg Haloperidol (Haldol) 0.5 mg PO Q6H PRN PRN Reason: Extreme agitation Haloperidol Lactate (Haldol) 0.5 mg IM Q6H PRN PRN Reason: Extreme agitation Lidocaine (Lidoderm) 1 patch TOP DAILY [facility] Last Admin: 03/29/17 08:56 Dose: 1 patch Lidocaine HCl/Dextrose (Lidoderm Patch Removal) 1 removal TOP 2100 [facility] Last Admin: 03/28/17 22:29 Dose: 1 removal Lorazepam (Ativan Inj) 0.5 mg IM Q6H PRN PRN Reason: Extreme agitation Lorazepam (Ativan) 0.5 mg PO Q6H PRN PRN Reason: Extreme agitation Last Admin: 03/25/17 19:03 Dose: 0.5 mg Magnesium Hydroxide (Mom) 30 ml PO DAILY PRN PRN Reason: Constipation Last Admin: 03/28/17 14:40 Dose: 30 ml Metoprolol Tartrate (Lopressor) 25 mg PO BIDWM [facility] Last Admin: 03/29/17 08:56 Dose: 25 mg Polyethylene Glycol (Miralax) 17 gm PO DAILY [facility] Last Admin: 03/29/17 08:57 Dose: 17 gm Ranitidine HCl (Zantac) 150 mg PO BID [facility] Last Admin: 03/29/17 08:56 Dose: 150 mg Simvastatin (Zocor) 20 mg PO [facility] Last Admin: 03/28/17 22:28 Dose: 20 mg Trazodone HCl (Desyrel) 50 mg PO [facility] Last Admin: 03/28/17 22:28 Dose: 50 mg Subjective: Pt seen and chart examined. Nursing reports pt is doing well. Sleeping well and has a good appetite. On face to face the pt states she feels a little better. Mood improved. Anxious also improving and pt is more organized and less confused. Tolerating meds Start Time: 18:30 Stop Time: 18:45 Mental Status Exam Vitals: Last Vital Signs Temp 97.8 F 03/29/17 15:57 Pulse 73 03/29/17 15:57 Resp 16 03/29/17 15:57 BP 107/62 03/29/17 15:57 Pulse Ox 96 03/29/17 15:57 Height: 1.68 m Weight: 64.3 kg - Mental Status Exam Muscle Strength/Tone: Normal Dressing: Casual Grooming: Good Attitude: Cooperative Motor Activity: Retardation Eye Contact: Fair Speech: Slowed Volume: Soft Rhythm: Appropriate Rhythm Orientation: Oriented X4 Mood: Depressed Rate of Thoughts: Appropriate Rate, Delayed Thought Organization: Organized Associations: Intact Abstract Reasoning: Intact, able to abstract Thought Content: Normal, Helplessness Perception/Psychotic: Perception Normal Language: Naming Intact Fund of Knowledge: Appropriate Memory: Grossly Intact Suicidal Ideation: Intermittent Homicidal Ideation: None Insight: Poor Judgement: Poor Impulse Control: Poor - Laboratory Result Diagrams: 03/25/17 16:07 03/27/17 07:48 Assessment and Plan (1) Major depressive disorder, recurrent episode with anxious distress Problem details: Severe Current visit: Yes Status: Acute Hospital Course Summary Disclaimer: The visit summary below is not to be considered part of the above Progress Note. Hospital Course: Assessment Anxiety Depression Hyponatremia-POA Anemia, unspecified Hypertension Palpitations Hyperlipidemia Osteoarthritis- Right Knee pain currently IBS 03/26/17-hospitalist consult Agree with [facility] admission for psychiatric treatment of her depression and anxiety. Continue home medicines for her hypertension and hyperlipidemia. Tylenol is not controlling her knee pain. She is taking diclofenac routinely. Order given for Lidoderm patches and [place] prn. Regarding her anemia, previous hemoglobin on 03/15/17 was 12.9. Will recheck a CBC and continue to follow. Will start ranitidine for GI prophylaxis given that she is on the diclofenac. Assuming she is not dropping significantly during her stay, this can be worked up outpatient. Repeat BMP tomorrow to follow-up on sodium levels. Sodium level on 03/15/17 was 129, but in 2012 was 141. This could be related to her SSRI. Given her palpitations, will check a TSH. Last record of TSH that I could find was 2012. It was normal at 3.5. We will continue to follow patient throughout her stay. Thank you for the consult. Patient's care to be returned to Dr. Flash Harvey on discharge. 03/26/17 18:17 Pt improving. Continue current care 03/27/17 10:50 Pt continues to improve. Continues to have some anxiety and depression. Continue current care 03/28/17 11:40 Anxiety and depression improving. Continue current care 03/29/17 18:51 Continues to improve. Continue current care
[2017-03-29] MEDS: SIMVASTATIN 20 MG TABLET PO SCH (21:16)
[2017-03-29] MEDS: TRAZODONE 50 MG TABLET PO SCH (21:16)
[2017-03-29] MEDS: LIDOCAINE PATCH REMOVAL TOP SCH (21:16)
[2017-03-30] MEDS: HYDROCODONE/APAP 5mg/325mg TABLET PO PRN ×2 (02:32→21:18)
[2017-03-30] MEDS: POLYETHYL GLYCOL 3350 17gm PACKET PO SCH (09:02)
[2017-03-30] MEDS: DICLOFENAC SODIUM DR 25 MG TABLET PO SCH ×2 (09:02→18:59)
[2017-03-30] MEDS: LIDOCAINE 5% PATCH TOP SCH (09:03)
[2017-03-30] MEDS: RANITIDINE 150 MG TABLET PO SCH ×2 (09:03→21:17)
[2017-03-30] MEDS: ESCITALOPRAM 20 MG TABLET PO SCH (09:03)
--- NOTE | 2017-03-30 09:38 | Progress Note ---
- Date 03/30/17 Subjective: Lizet was still in bed, but was awake and alert. She c/o insomnia - can't shut off her mind. She also feels "uptight" this am. She denies any chest pain or difficulty breathing. No abdominal pain or GI complaints. She states that she's been eating and drinking well. Objective Vital signs: Temperature 97.4 F 03/30/17 08:00 Pulse Rate 74 03/30/17 08:00 Respiratory Rate 16 03/30/17 08:00 Blood Pressure 151/69 H 03/30/17 08:00 Pulse Oximetry 98 03/30/17 08:00 Height/Weight/BMI: Height 1.68 m Weight 64.3 kg Body Mass Index 22.8 - Constitutional Present: no acute distress, well nourished, well developed - Routine Respiratory Exam Present: CTA bilaterally - Routine Cardiovascular Exam Present: RRR, S1, S2 - Routine Abdominal Exam Present: soft, normoactive bowel sounds, non distended, non tender - Routine Extremities Exam Present: no edema - Routine Skin Exam Present: intact, dry, warm - Routine Neurological Exam Present: alert, oriented X3 - Routine Psychiatric Exam Present: cooperative Results - Labs CBC & Chem 7: 03/25/17 16:07 03/30/17 07:55 Assessment and Plan (1) Major depressive disorder, recurrent episode with anxious distress Problem details: Severe Current visit: Yes Status: Acute Resuscitation Status: Do Not Resuscitate Assessment and Plan: Assessment Anxiety Depression Hyponatremia-POA and chronic Anemia, unspecified Hypertension Palpitations Hyperlipidemia Osteoarthritis- Right Knee pain currently IBS Plan BMP rechecked - Na improved to 135. Pt admits to chronic hyponatremia. Ca improved to 8.6. TSH was low-normal at 0.6. VS stable although some lability to BP despite Metoprolol. No bradycardia. Psych notes reviewed - no changes. Defer insomnia treatment to Dr. Marinelli. Hospital Course Summary Disclaimer: The visit summary below is not to be considered part of the above Progress Note. Hospital Course: Assessment Anxiety Depression Hyponatremia-POA Anemia, unspecified Hypertension Palpitations Hyperlipidemia Osteoarthritis- Right Knee pain currently IBS 03/26/17-hospitalist consult Agree with [facility] admission for psychiatric treatment of her depression and anxiety. Continue home medicines for her hypertension and hyperlipidemia. Tylenol is not controlling her knee pain. She is taking diclofenac routinely. Order given for Lidoderm patches and [place] prn. Regarding her anemia, previous hemoglobin on 03/15/17 was 12.9. Will recheck a CBC and continue to follow. Will start ranitidine for GI prophylaxis given that she is on the diclofenac. Assuming she is not dropping significantly during her stay, this can be worked up outpatient. Repeat BMP tomorrow to follow-up on sodium levels. Sodium level on 03/15/17 was 129, but in 2012 was 141. This could be related to her SSRI. Given her palpitations, will check a TSH. Last record of TSH that I could find was 2012. It was normal at 3.5. We will continue to follow patient throughout her stay. Thank you for the consult. Patient's care to be returned to Dr. Flash Harvey on discharge. 03/26/17 18:17 Pt improving. Continue current care 03/27/17 10:50 Pt continues to improve. Continues to have some anxiety and depression. Continue current care 03/28/17 11:40 Anxiety and depression improving. Continue current care 03/29/17 18:51 Continues to improve. Continue current care 03/30/17 BMP rechecked - Na improved to 135. Pt admits to chronic hyponatremia. Ca improved to 8.6. TSH was low-normal at 0.6. VS stable although some lability to BP despite Metoprolol. No bradycardia. Psych notes reviewed - no changes. Defer insomnia treatment to Dr. Marinelli.
[2017-03-30] MEDS: ACETAMINOPHEN 325 MG TABLET PO PRN (10:30)
--- NOTE | 2017-03-30 18:50 | Neuropsych Progress Note ---
[facility] Subjective Date: 03/30/17 - Sujective/Severity of Illness Medications: Acetaminophen (Tylenol) 325 - 650 mg PO Q5H PRN PRN Reason: Discomfort Last Admin: 03/30/17 10:30 Dose: 650 mg Hydrocodone Bitart/Acetaminophen ([place] 5/325) 1 tab PO Q4H PRN PRN Reason: right knee Pain Last Admin: 03/30/17 02:32 Dose: 1 tab Bisacodyl (Dulcolax) 10 mg PO DAILY PRN PRN Reason: Constipation Last Admin: 03/29/17 11:16 Dose: 10 mg Bisacodyl (Dulcolax) 10 mg RECTALLY DAILY PRN PRN Reason: Constipation Last Admin: 03/27/17 08:16 Dose: 10 mg Clonidine HCl (Catapres) 0.1 mg PO NOON [facility] Last Admin: 03/30/17 11:46 Dose: 0.1 mg Diclofenac Sodium (Voltaren) 50 mg PO BIDWM [facility] Last Admin: 03/30/17 09:02 Dose: 50 mg Escitalopram Oxalate (Lexapro) 20 mg PO DAILY [facility] Last Admin: 03/30/17 09:03 Dose: 20 mg Haloperidol (Haldol) 0.5 mg PO Q6H PRN PRN Reason: Extreme agitation Haloperidol Lactate (Haldol) 0.5 mg IM Q6H PRN PRN Reason: Extreme agitation Lidocaine (Lidoderm) 1 patch TOP DAILY [facility] Last Admin: 03/30/17 09:03 Dose: 1 patch Lidocaine HCl/Dextrose (Lidoderm Patch Removal) 1 removal TOP 2100 [facility] Last Admin: 03/29/17 21:16 Dose: 1 removal Lorazepam (Ativan Inj) 0.5 mg IM Q6H PRN PRN Reason: Extreme agitation Lorazepam (Ativan) 0.5 mg PO Q6H PRN PRN Reason: Extreme agitation Last Admin: 03/25/17 19:03 Dose: 0.5 mg Magnesium Hydroxide (Mom) 30 ml PO DAILY PRN PRN Reason: Constipation Last Admin: 03/28/17 14:40 Dose: 30 ml Metoprolol Tartrate (Lopressor) 25 mg PO BIDWM [facility] Last Admin: 03/30/17 09:04 Dose: 25 mg Polyethylene Glycol (Miralax) 17 gm PO DAILY [facility] Last Admin: 03/30/17 09:02 Dose: 17 gm Ranitidine HCl (Zantac) 150 mg PO BID [facility] Last Admin: 03/30/17 09:03 Dose: 150 mg Simvastatin (Zocor) 20 mg PO HS [facility] Last Admin: 03/29/17 21:16 Dose: 20 mg Subjective: Pt seen and chart examined. Nursing reports pt is doing well. Sleeping well and has a good appetite. On face to face the pt states she is having some anxiety at times. She states she wakes upwith anxiety and is worried about her knee operation. She reports some issues with sleep. Mood fairly stable. Denies S/I. Tolerating meds Start Time: 17:30 Stop Time: 17:45 Mental Status Exam Vitals: Last Vital Signs Temp 98 F 03/30/17 16:00 Pulse 68 03/30/17 16:00 Resp 18 03/30/17 16:00 BP 121/65 03/30/17 16:00 Pulse Ox 100 03/30/17 16:00 Height: 1.68 m Weight: 64.3 kg - Mental Status Exam Muscle Strength/Tone: Normal Dressing: Casual Grooming: Good Attitude: Cooperative Motor Activity: Retardation Eye Contact: Fair Speech: Slowed Volume: Soft Rhythm: Appropriate Rhythm Orientation: Oriented X4 Mood: Depressed Rate of Thoughts: Appropriate Rate, Delayed Thought Organization: Organized Associations: Intact Abstract Reasoning: Intact, able to abstract Thought Content: Normal, Helplessness Perception/Psychotic: Perception Normal Language: Naming Intact Fund of Knowledge: Appropriate Memory: Grossly Intact Suicidal Ideation: Intermittent Homicidal Ideation: None Insight: Poor Judgement: Poor Impulse Control: Poor - Laboratory Result Diagrams: 03/25/17 16:07 03/30/17 07:55 Laboratory Results - last 24 hr 03/30/17 07:55 Turbidity < 20 Sodium 135 Potassium 4.6 Chloride 100 Carbon Dioxide 28 Anion Gap 7 BUN 15.0 Creatinine 0.8 GFR Calculation 69 BUN/Creatinine Ratio 19 Glucose 106 Calculated Osmolality 261 Calcium 8.6 Icterus Index < 2 Specimen Hemolysis < 15 Assessment and Plan (1) Major depressive disorder, recurrent episode with anxious distress Problem details: Severe Current visit: Yes Status: Acute Hospital Course Summary Disclaimer: The visit summary below is not to be considered part of the above Progress Note. Hospital Course: Assessment Anxiety Depression Hyponatremia-POA Anemia, unspecified Hypertension Palpitations Hyperlipidemia Osteoarthritis- Right Knee pain currently IBS 03/26/17-hospitalist consult Agree with [facility] admission for psychiatric treatment of her depression and anxiety. Continue home medicines for her hypertension and hyperlipidemia. Tylenol is not controlling her knee pain. She is taking diclofenac routinely. Order given for Lidoderm patches and [place] prn. Regarding her anemia, previous hemoglobin on 03/15/17 was 12.9. Will recheck a CBC and continue to follow. Will start ranitidine for GI prophylaxis given that she is on the diclofenac. Assuming she is not dropping significantly during her stay, this can be worked up outpatient. Repeat BMP tomorrow to follow-up on sodium levels. Sodium level on 03/15/17 was 129, but in 2012 was 141. This could be related to her SSRI. Given her palpitations, will check a TSH. Last record of TSH that I could find was 2012. It was normal at 3.5. We will continue to follow patient throughout her stay. Thank you for the consult. Patient's care to be returned to Dr. Flash Harvey on discharge. 03/26/17 18:17 Pt improving. Continue current care 03/27/17 10:50 Pt continues to improve. Continues to have some anxiety and depression. Continue current care 03/28/17 11:40 Anxiety and depression improving. Continue current care 03/29/17 18:51 Continues to improve. Continue current care 03/30/17 BMP rechecked - Na improved to 135. Pt admits to chronic hyponatremia. Ca improved to 8.6. TSH was low-normal at 0.6. VS stable although some lability to BP despite Metoprolol. No bradycardia. Psych notes reviewed - no changes. Defer insomnia treatment to Dr. Marinelli. 03/30/17 18:50 Some insomnia and anxiety. D/C Trazodone and start Ativan 0.5mg at HS
[2017-03-30] MEDS: LORazepam 0.5 MG TABLET PO SCH (21:17)
[2017-03-30] MEDS: SIMVASTATIN 20 MG TABLET PO SCH (21:18)
[2017-03-30] MEDS: LIDOCAINE PATCH REMOVAL TOP SCH (21:21)
[2017-03-31] MEDS: HYDROCODONE/APAP 5mg/325mg TABLET PO PRN (01:20)
[2017-03-31] MEDS: RANITIDINE 150 MG TABLET PO SCH ×2 (09:00→21:11)
[2017-03-31] MEDS: ESCITALOPRAM 20 MG TABLET PO SCH (09:00)
[2017-03-31] MEDS: LIDOCAINE 5% PATCH TOP SCH (09:00)
[2017-03-31] MEDS: POLYETHYL GLYCOL 3350 17gm PACKET PO SCH (09:01)
[2017-03-31] MEDS: DICLOFENAC SODIUM DR 25 MG TABLET PO SCH ×2 (09:01→19:18)
--- NOTE | 2017-03-31 18:00 | Neuropsych Progress Note ---
[facility] Subjective Date: 03/31/17 - Sujective/Severity of Illness Medications: Acetaminophen (Tylenol) 325 - 650 mg PO Q5H PRN PRN Reason: Discomfort Last Admin: 03/30/17 10:30 Dose: 650 mg Hydrocodone Bitart/Acetaminophen ([place] 5/325) 1 tab PO Q4H PRN PRN Reason: right knee Pain Last Admin: 03/31/17 01:20 Dose: 1 tab Bisacodyl (Dulcolax) 10 mg PO DAILY PRN PRN Reason: Constipation Last Admin: 03/29/17 11:16 Dose: 10 mg Bisacodyl (Dulcolax) 10 mg RECTALLY DAILY PRN PRN Reason: Constipation Last Admin: 03/27/17 08:16 Dose: 10 mg Clonidine HCl (Catapres) 0.1 mg PO NOON [facility] Last Admin: 03/31/17 12:03 Dose: 0.1 mg Diclofenac Sodium (Voltaren) 50 mg PO BIDWM [facility] Last Admin: 03/31/17 09:01 Dose: 50 mg Escitalopram Oxalate (Lexapro) 20 mg PO DAILY [facility] Last Admin: 03/31/17 09:00 Dose: 20 mg Haloperidol (Haldol) 0.5 mg PO Q6H PRN PRN Reason: Extreme agitation Haloperidol Lactate (Haldol) 0.5 mg IM Q6H PRN PRN Reason: Extreme agitation Lidocaine (Lidoderm) 1 patch TOP DAILY [facility] Last Admin: 03/31/17 09:00 Dose: 1 patch Lidocaine HCl/Dextrose (Lidoderm Patch Removal) 1 removal TOP 2100 [facility] Last Admin: 03/30/17 21:21 Dose: 1 removal Lorazepam (Ativan Inj) 0.5 mg IM Q6H PRN PRN Reason: Extreme agitation Lorazepam (Ativan) 0.5 mg PO Q6H PRN PRN Reason: Extreme agitation Last Admin: 03/25/17 19:03 Dose: 0.5 mg Lorazepam (Ativan) 0.[address] [facility] Last Admin: 03/30/17 21:17 Dose: 0.5 mg Magnesium Hydroxide (Mom) 30 ml PO DAILY PRN PRN Reason: Constipation Last Admin: 03/28/17 14:40 Dose: 30 ml Metoprolol Tartrate (Lopressor) 25 mg PO BIDWM [facility] Last Admin: 03/31/17 09:00 Dose: 25 mg Polyethylene Glycol (Miralax) 17 gm PO DAILY [facility] Last Admin: 03/31/17 09:01 Dose: 17 gm Ranitidine HCl (Zantac) 150 mg PO BID [facility] Last Admin: 03/31/17 09:00 Dose: 150 mg Simvastatin (Zocor) 20 mg PO HS [facility] Last Admin: 03/30/17 21:18 Dose: 20 mg Subjective: Pt seen and chart examined. Nursing reports pt is doing well. Sleeping well and has a good appetite. On face to face the pt states she feels a little better. She continues to have alot of anxiety around her surgery coming up. She states her mood is fairly stable. She denies S/I or psychosis. Tolerating meds Start Time: 17:30 Stop Time: 17:45 Mental Status Exam Vitals: Last Vital Signs Temp 96.5 F L 03/31/17 16:00 Pulse 76 03/31/17 16:00 Resp 18 03/31/17 16:00 BP 133/69 03/31/17 16:00 Pulse Ox 99 03/31/17 16:00 Height: 1.68 m Weight: 64.3 kg - Mental Status Exam Muscle Strength/Tone: Normal Dressing: Casual Grooming: Good Attitude: Cooperative Motor Activity: Retardation Eye Contact: Fair Speech: Slowed Volume: Soft Rhythm: Appropriate Rhythm Orientation: Oriented X4 Mood: Depressed Rate of Thoughts: Appropriate Rate, Delayed Thought Organization: Organized Associations: Intact Abstract Reasoning: Intact, able to abstract Thought Content: Normal, Helplessness Perception/Psychotic: Perception Normal Language: Naming Intact Fund of Knowledge: Appropriate Memory: Grossly Intact Suicidal Ideation: Intermittent Homicidal Ideation: None Insight: Poor Judgement: Poor Impulse Control: Poor - Laboratory Result Diagrams: 03/25/17 16:07 03/30/17 07:55 Assessment and Plan (1) Major depressive disorder, recurrent episode with anxious distress Problem details: Severe Current visit: Yes Status: Acute Hospital Course Summary Disclaimer: The visit summary below is not to be considered part of the above Progress Note. Hospital Course: Assessment Anxiety Depression Hyponatremia-POA Anemia, unspecified Hypertension Palpitations Hyperlipidemia Osteoarthritis- Right Knee pain currently IBS 03/26/17-hospitalist consult Agree with [facility] admission for psychiatric treatment of her depression and anxiety. Continue home medicines for her hypertension and hyperlipidemia. Tylenol is not controlling her knee pain. She is taking diclofenac routinely. Order given for Lidoderm patches and [place] prn. Regarding her anemia, previous hemoglobin on 03/15/17 was 12.9. Will recheck a CBC and continue to follow. Will start ranitidine for GI prophylaxis given that she is on the diclofenac. Assuming she is not dropping significantly during her stay, this can be worked up outpatient. Repeat BMP tomorrow to follow-up on sodium levels. Sodium level on 03/15/17 was 129, but in 2012 was 141. This could be related to her SSRI. Given her palpitations, will check a TSH. Last record of TSH that I could find was 2012. It was normal at 3.5. We will continue to follow patient throughout her stay. Thank you for the consult. Patient's care to be returned to Dr. Flash Harvey on discharge. 03/26/17 18:17 Pt improving. Continue current care 03/27/17 10:50 Pt continues to improve. Continues to have some anxiety and depression. Continue current care 03/28/17 11:40 Anxiety and depression improving. Continue current care 03/29/17 18:51 Continues to improve. Continue current care 03/30/17 BMP rechecked - Na improved to 135. Pt admits to chronic hyponatremia. Ca improved to 8.6. TSH was low-normal at 0.6. VS stable although some lability to BP despite Metoprolol. No bradycardia. Psych notes reviewed - no changes. Defer insomnia treatment to Dr. Marinelli. 03/30/17 18:50 Some insomnia and anxiety. D/C Trazodone and start Ativan 0.5mg at HS 03/31/17 18:00 Continues to have anxiety but improved. Continue current care
[2017-03-31] MEDS: SIMVASTATIN 20 MG TABLET PO SCH (21:11)
[2017-03-31] MEDS: LORazepam 0.5 MG TABLET PO SCH (21:11)
[2017-03-31] MEDS: LIDOCAINE PATCH REMOVAL TOP SCH (21:22)
[2017-04-01] MEDS: HYDROCODONE/APAP 5mg/325mg TABLET PO PRN (01:18)
[2017-04-01] MEDS: ACETAMINOPHEN 325 MG TABLET PO PRN (03:40)
[2017-04-01] MEDS: LORazepam 0.5 MG TABLET PO PRN (06:29)
[2017-04-01] MEDS: LIDOCAINE 5% PATCH TOP SCH (08:16)
[2017-04-01] MEDS: ESCITALOPRAM 20 MG TABLET PO SCH (08:21)
[2017-04-01] MEDS: POLYETHYL GLYCOL 3350 17gm PACKET PO SCH (08:21)
[2017-04-01] MEDS: DICLOFENAC SODIUM DR 25 MG TABLET PO SCH ×2 (08:21→17:44)
[2017-04-01] MEDS: RANITIDINE 150 MG TABLET PO SCH ×2 (08:22→21:10)
--- NOTE | 2017-04-01 19:24 | Neuropsych Progress Note ---
[facility] Subjective Date: 04/01/17 - Sujective/Severity of Illness Medications: Acetaminophen (Tylenol) 325 - 650 mg PO Q5H PRN PRN Reason: Discomfort Last Admin: 04/01/17 03:40 Dose: 650 mg Hydrocodone Bitart/Acetaminophen ([place] 5/325) 1 tab PO Q4H PRN PRN Reason: right knee Pain Last Admin: 04/01/17 01:18 Dose: 1 tab Bisacodyl (Dulcolax) 10 mg PO DAILY PRN PRN Reason: Constipation Last Admin: 03/29/17 11:16 Dose: 10 mg Bisacodyl (Dulcolax) 10 mg RECTALLY DAILY PRN PRN Reason: Constipation Last Admin: 03/27/17 08:16 Dose: 10 mg Clonidine HCl (Catapres) 0.1 mg PO NOON [facility] Last Admin: 04/01/17 11:47 Dose: 0.1 mg Diclofenac Sodium (Voltaren) 50 mg PO BIDWM [facility] Last Admin: 04/01/17 17:44 Dose: 50 mg Escitalopram Oxalate (Lexapro) 20 mg PO DAILY [facility] Last Admin: 04/01/17 08:21 Dose: 20 mg Haloperidol (Haldol) 0.5 mg PO Q6H PRN PRN Reason: Extreme agitation Haloperidol Lactate (Haldol) 0.5 mg IM Q6H PRN PRN Reason: Extreme agitation Lidocaine (Lidoderm) 1 patch TOP DAILY [facility] Last Admin: 04/01/17 08:16 Dose: 1 patch Lidocaine HCl/Dextrose (Lidoderm Patch Removal) 1 removal TOP 2100 [facility] Last Admin: 03/31/17 21:22 Dose: 1 removal Lorazepam (Ativan Inj) 0.5 mg IM Q6H PRN PRN Reason: Extreme agitation Lorazepam (Ativan) 0.5 mg PO Q6H PRN PRN Reason: Extreme agitation Last Admin: 04/01/17 06:29 Dose: 0.5 mg Lorazepam (Ativan) 0.5 mg PO HS [facility] Last Admin: 03/31/17 21:11 Dose: 0.5 mg Magnesium Hydroxide (Mom) 30 ml PO DAILY PRN PRN Reason: Constipation Last Admin: 03/28/17 14:40 Dose: 30 ml Metoprolol Tartrate (Lopressor) 25 mg PO BIDWM [facility] Last Admin: 04/01/17 17:44 Dose: 25 mg Polyethylene Glycol (Miralax) 17 gm PO DAILY [facility] Last Admin: 04/01/17 08:21 Dose: 17 gm Ranitidine HCl (Zantac) 150 mg PO BID [facility] Last Admin: 04/01/17 08:22 Dose: 150 mg Simvastatin (Zocor) 20 mg PO HS [facility] Last Admin: 03/31/17 21:11 Dose: 20 mg Subjective: Pt seen and chart examined. Nursing reports pt is doing well. Sleeping well and has a good appetite. On face to face the pt states she is feeling better. Reports she feels Trazodone and Ativan together helped better with sleep. She reports her mood is improved and her anxiety is better. Denies S/I. Tolerating meds Start Time: 17:30 Stop Time: 17:45 Mental Status Exam Vitals: Last Vital Signs Temp 97.6 F 04/01/17 15:41 Pulse 66 04/01/17 15:41 Resp 18 04/01/17 15:41 BP 112/62 04/01/17 15:41 Pulse Ox 97 04/01/17 15:41 Height: 1.68 m Weight: 64.3 kg - Mental Status Exam Muscle Strength/Tone: Normal Dressing: Casual Grooming: Good Attitude: Cooperative Motor Activity: Retardation Eye Contact: Fair Speech: Slowed Volume: Soft Rhythm: Appropriate Rhythm Orientation: Oriented X4 Mood: Depressed Rate of Thoughts: Appropriate Rate, Delayed Thought Organization: Organized Associations: Intact Abstract Reasoning: Intact, able to abstract Thought Content: Normal, Helplessness Perception/Psychotic: Perception Normal Language: Naming Intact Fund of Knowledge: Appropriate Memory: Grossly Intact Suicidal Ideation: Intermittent Homicidal Ideation: None Insight: Poor Judgement: Poor Impulse Control: Poor - Laboratory Result Diagrams: 03/25/17 16:07 03/30/17 07:55 Laboratory Results - last 24 hr 04/01/17 07:27 Triglycerides 108 Cholesterol 159 LDL Cholesterol, Calc 81.4 VLDL Cholesterol 21.6 HDL Cholesterol 56 Cholesterol/HDL Ratio 2.8 Assessment and Plan (1) Major depressive disorder, recurrent episode with anxious distress Problem details: Severe Current visit: Yes Status: Acute Hospital Course Summary Disclaimer: The visit summary below is not to be considered part of the above Progress Note. Hospital Course: Assessment Anxiety Depression Hyponatremia-POA Anemia, unspecified Hypertension Palpitations Hyperlipidemia Osteoarthritis- Right Knee pain currently IBS 03/26/17-hospitalist consult Agree with [facility] admission for psychiatric treatment of her depression and anxiety. Continue home medicines for her hypertension and hyperlipidemia. Tylenol is not controlling her knee pain. She is taking diclofenac routinely. Order given for Lidoderm patches and [place] prn. Regarding her anemia, previous hemoglobin on 03/15/17 was 12.9. Will recheck a CBC and continue to follow. Will start ranitidine for GI prophylaxis given that she is on the diclofenac. Assuming she is not dropping significantly during her stay, this can be worked up outpatient. Repeat BMP tomorrow to follow-up on sodium levels. Sodium level on 03/15/17 was 129, but in 2012 was 141. This could be related to her SSRI. Given her palpitations, will check a TSH. Last record of TSH that I could find was 2012. It was normal at 3.5. We will continue to follow patient throughout her stay. Thank you for the consult. Patient's care to be returned to Dr. Flash Harvey on discharge. 03/26/17 18:17 Pt improving. Continue current care 03/27/17 10:50 Pt continues to improve. Continues to have some anxiety and depression. Continue current care 03/28/17 11:40 Anxiety and depression improving. Continue current care 03/29/17 18:51 Continues to improve. Continue current care 03/30/17 BMP rechecked - Na improved to 135. Pt admits to chronic hyponatremia. Ca improved to 8.6. TSH was low-normal at 0.6. VS stable although some lability to BP despite Metoprolol. No bradycardia. Psych notes reviewed - no changes. Defer insomnia treatment to Dr. Marinelli. 03/30/17 18:50 Some insomnia and anxiety. D/C Trazodone and start Ativan 0.5mg at HS 03/31/17 18:00 Continues to have anxiety but improved. Continue current care 04/01/17 19:24 Some issues with sleep. Trazodone 50mg PO QHS
[2017-04-01] MEDS: SIMVASTATIN 20 MG TABLET PO SCH (21:10)
[2017-04-01] MEDS: TRAZODONE 50 MG TABLET PO SCH (21:10)
[2017-04-01] MEDS: LIDOCAINE PATCH REMOVAL TOP SCH (21:10)
[2017-04-01] MEDS: LORazepam 0.5 MG TABLET PO SCH (21:10)
[2017-04-02] MEDS: HYDROCODONE/APAP 5mg/325mg TABLET PO PRN ×2 (02:32→14:13)
[2017-04-02] MEDS: LIDOCAINE 5% PATCH TOP SCH (08:54)
[2017-04-02] MEDS: RANITIDINE 150 MG TABLET PO SCH ×2 (09:26→22:09)
[2017-04-02] MEDS: ESCITALOPRAM 20 MG TABLET PO SCH (09:26)
[2017-04-02] MEDS: DICLOFENAC SODIUM DR 25 MG TABLET PO SCH ×3 (09:26→19:31)
[2017-04-02] MEDS: POLYETHYL GLYCOL 3350 17gm PACKET PO SCH (09:26)
[2017-04-02] MEDS: ACETAMINOPHEN 325 MG TABLET PO PRN (10:45)
--- NOTE | 2017-04-02 15:20 | Progress Note ---
- Date 04/02/17 Subjective: Lizet states that she's been doing well. She has no concerns other than her chronic right knee pain, which limits her ability to walk as much as she'd like. She denies any chest pain or SOA. She states that it feels like her heart is pounding - I reassured her that her heart rate on exam was actually on the low end of normal. She admits to having anxiety, and thinks that the pounding sensation could be from that. She has been eating/drinking well. No abdominal pain, nausea, or constipation. Objective Vital signs: Temperature 97.6 F 04/02/17 08:00 Pulse Rate 75 04/02/17 08:00 Respiratory Rate 16 04/02/17 08:00 Blood Pressure 143/71 H 04/02/17 08:00 Pulse Oximetry 98 04/02/17 08:00 Height/Weight/BMI: Height 1.68 m Weight 66 kg Body Mass Index 22.8 - Constitutional Present: no acute distress, well nourished, well developed - Routine HEENT Exam ENT: Present: oropharynx clear - Routine Respiratory Exam Present: CTA bilaterally - Routine Cardiovascular Exam Present: RRR, S1, S2 - Routine Abdominal Exam Present: soft, normoactive bowel sounds, non distended, non tender - Routine Extremities Exam Present: no edema - Routine Skin Exam Present: intact, dry, warm - Routine Neurological Exam Present: alert, oriented X3 - Routine Psychiatric Exam Present: normal affect, normal thought process, cooperative Results - Labs CBC & Chem 7: 03/25/17 16:07 03/30/17 07:55 Assessment and Plan (1) Major depressive disorder, recurrent episode with anxious distress Problem details: Severe Current visit: Yes Status: Acute Assessment and Plan: Assessment Anxiety Depression Hyponatremia-POA and chronic Anemia, unspecified Hypertension Palpitations Hyperlipidemia Osteoarthritis- Right Knee pain currently IBS Plan Medically stable. Labs, VS reviewed - BP with occasional elevation. Psych notes reviewed - Trazodone started HS to help with sleep. Resuscitation Status: Do Not Resuscitate Hospital Course Summary Disclaimer: The visit summary below is not to be considered part of the above Progress Note. Hospital Course: Assessment Anxiety Depression Hyponatremia-POA Anemia, unspecified Hypertension Palpitations Hyperlipidemia Osteoarthritis- Right Knee pain currently IBS 03/26/17-hospitalist consult Agree with [facility] admission for psychiatric treatment of her depression and anxiety. Continue home medicines for her hypertension and hyperlipidemia. Tylenol is not controlling her knee pain. She is taking diclofenac routinely. Order given for Lidoderm patches and [place] prn. Regarding her anemia, previous hemoglobin on 03/15/17 was 12.9. Will recheck a CBC and continue to follow. Will start ranitidine for GI prophylaxis given that she is on the diclofenac. Assuming she is not dropping significantly during her stay, this can be worked up outpatient. Repeat BMP tomorrow to follow-up on sodium levels. Sodium level on 03/15/17 was 129, but in 2012 was 141. This could be related to her SSRI. Given her palpitations, will check a TSH. Last record of TSH that I could find was 2012. It was normal at 3.5. We will continue to follow patient throughout her stay. Thank you for the consult. Patient's care to be returned to Dr. Flash Harvey on discharge. 03/26/17 18:17 Pt improving. Continue current care 03/27/17 10:50 Pt continues to improve. Continues to have some anxiety and depression. Continue current care 03/28/17 11:40 Anxiety and depression improving. Continue current care 03/29/17 18:51 Continues to improve. Continue current care 03/30/17 BMP rechecked - Na improved to 135. Pt admits to chronic hyponatremia. Ca improved to 8.6. TSH was low-normal at 0.6. VS stable although some lability to BP despite Metoprolol. No bradycardia. Psych notes reviewed - no changes. Defer insomnia treatment to Dr. Marinelli. 03/30/17 18:50 Some insomnia and anxiety. D/C Trazodone and start Ativan 0.5mg at HS 03/31/17 18:00 Continues to have anxiety but improved. Continue current care 04/01/17 19:24 Some issues with sleep. Trazodone 50mg PO QHS
--- NOTE | 2017-04-02 18:48 | Neuropsych Progress Note ---
[facility] Subjective Date: 04/02/17 - Sujective/Severity of Illness Medications: Acetaminophen (Tylenol) 325 - 650 mg PO Q5H PRN PRN Reason: Discomfort Last Admin: 04/02/17 10:45 Dose: 650 mg Hydrocodone Bitart/Acetaminophen (Pavillion 5/325) 1 tab PO Q4H PRN PRN Reason: right knee Pain Last Admin: 04/02/17 14:13 Dose: 1 tab Bisacodyl (Dulcolax) 10 mg PO DAILY PRN PRN Reason: Constipation Last Admin: 03/29/17 11:16 Dose: 10 mg Bisacodyl (Dulcolax) 10 mg RECTALLY DAILY PRN PRN Reason: Constipation Last Admin: 03/27/17 08:16 Dose: 10 mg Clonidine HCl (Catapres) 0.1 mg PO NOON [facility] Last Admin: 04/02/17 11:47 Dose: 0.1 mg Diclofenac Sodium (Voltaren) 50 mg PO BIDWM [facility] Last Admin: 04/02/17 09:26 Dose: 50 mg Escitalopram Oxalate (Lexapro) 20 mg PO DAILY [facility] Last Admin: 04/02/17 09:26 Dose: 20 mg Haloperidol (Haldol) 0.5 mg PO Q6H PRN PRN Reason: Extreme agitation Haloperidol Lactate (Haldol) 0.5 mg IM Q6H PRN PRN Reason: Extreme agitation Lidocaine (Lidoderm) 1 patch TOP DAILY [facility] Last Admin: 04/02/17 08:54 Dose: 1 patch Lidocaine HCl/Dextrose (Lidoderm Patch Removal) 1 removal TOP 2100 [facility] Last Admin: 04/01/17 21:10 Dose: 1 removal Lorazepam (Ativan Inj) 0.5 mg IM Q6H PRN PRN Reason: Extreme agitation Lorazepam (Ativan) 0.5 mg PO Q6H PRN PRN Reason: Extreme agitation Last Admin: 04/01/17 06:29 Dose: 0.5 mg Lorazepam (Ativan) 0.5 mg PO HS [facility] Last Admin: 04/01/17 21:10 Dose: 0.5 mg Magnesium Hydroxide (Mom) 30 ml PO DAILY PRN PRN Reason: Constipation Last Admin: 03/28/17 14:40 Dose: 30 ml Metoprolol Tartrate (Lopressor) 25 mg PO BIDWM [facility] Last Admin: 04/02/17 09:26 Dose: 25 mg Polyethylene Glycol (Miralax) 17 gm PO DAILY [facility] Last Admin: 04/02/17 09:26 Dose: 17 gm Ranitidine HCl (Zantac) 150 mg PO BID [facility] Last Admin: 04/02/17 09:26 Dose: 150 mg Simvastatin (Zocor) 20 mg PO [facility] Last Admin: 04/01/17 21:10 Dose: 20 mg Trazodone HCl (Desyrel) 50 mg PO [facility] Last Admin: 04/01/17 21:10 Dose: 50 mg Subjective: Pt seen and chart examined. Nursing reports pt is doing well. Sleeping well and has a good appetite. On face to face the pt states she is feeling better. She reports she slept better last night. Mood and anxiety improved. Denies S/ I. Tolerating meds Start Time: 16:30 Stop Time: 16:45 Mental Status Exam Vitals: Last Vital Signs Temp 96.9 F 04/02/17 16:00 Pulse 72 04/02/17 16:00 Resp 18 04/02/17 16:00 BP 108/64 04/02/17 16:00 Pulse Ox 96 04/02/17 16:00 Height: 1.68 m Weight: 66 kg - Mental Status Exam Muscle Strength/Tone: Normal Dressing: Casual Grooming: Good Attitude: Cooperative Motor Activity: Retardation Eye Contact: Fair Speech: Slowed Volume: Soft Rhythm: Appropriate Rhythm Orientation: Oriented X4 Mood: Depressed Rate of Thoughts: Appropriate Rate, Delayed Thought Organization: Organized Associations: Intact Abstract Reasoning: Intact, able to abstract Thought Content: Normal, Helplessness Perception/Psychotic: Perception Normal Language: Naming Intact Fund of Knowledge: Appropriate Memory: Grossly Intact Suicidal Ideation: Intermittent Homicidal Ideation: None Insight: Poor Judgement: Poor Impulse Control: Poor - Laboratory Result Diagrams: 03/25/17 16:07 03/30/17 07:55 Assessment and Plan (1) Major depressive disorder, recurrent episode with anxious distress Problem details: Severe Current visit: Yes Status: Acute Hospital Course Summary Disclaimer: The visit summary below is not to be considered part of the above Progress Note. Hospital Course: Assessment Anxiety Depression Hyponatremia-POA Anemia, unspecified Hypertension Palpitations Hyperlipidemia Osteoarthritis- Right Knee pain currently IBS 03/26/17-hospitalist consult Agree with [facility] admission for psychiatric treatment of her depression and anxiety. Continue home medicines for her hypertension and hyperlipidemia. Tylenol is not controlling her knee pain. She is taking diclofenac routinely. Order given for Lidoderm patches and Pavillion prn. Regarding her anemia, previous hemoglobin on 03/15/17 was 12.9. Will recheck a CBC and continue to follow. Will start ranitidine for GI prophylaxis given that she is on the diclofenac. Assuming she is not dropping significantly during her stay, this can be worked up outpatient. Repeat BMP tomorrow to follow-up on sodium levels. Sodium level on 03/15/17 was 129, but in 2012 was 141. This could be related to her SSRI. Given her palpitations, will check a TSH. Last record of TSH that I could find was 2012. It was normal at 3.5. We will continue to follow patient throughout her stay. Thank you for the consult. Patient's care to be returned to Dr. Flash Harvey on discharge. 03/26/17 18:17 Pt improving. Continue current care 03/27/17 10:50 Pt continues to improve. Continues to have some anxiety and depression. Continue current care 03/28/17 11:40 Anxiety and depression improving. Continue current care 03/29/17 18:51 Continues to improve. Continue current care 03/30/17 BMP rechecked - Na improved to 135. Pt admits to chronic hyponatremia. Ca improved to 8.6. TSH was low-normal at 0.6. VS stable although some lability to BP despite Metoprolol. No bradycardia. Psych notes reviewed - no changes. Defer insomnia treatment to Dr. Marinelli. 03/30/17 18:50 Some insomnia and anxiety. D/C Trazodone and start Ativan 0.5mg at HS 03/31/17 18:00 Continues to have anxiety but improved. Continue current care 04/01/17 19:24 Some issues with sleep. Trazodone 50mg PO QHS 04/02/17 18:47 Improved. Denies S/I. Continue current care
[2017-04-02] MEDS: TRAZODONE 50 MG TABLET PO SCH (22:08)
[2017-04-02] MEDS: SIMVASTATIN 20 MG TABLET PO SCH (22:09)
[2017-04-02] MEDS: LORazepam 0.5 MG TABLET PO SCH (22:10)
[2017-04-02] MEDS: LIDOCAINE PATCH REMOVAL TOP SCH (22:11)
[2017-04-03] MEDS: HYDROCODONE/APAP 5mg/325mg TABLET PO PRN ×2 (02:03→14:40)
[2017-04-03] MEDS: DICLOFENAC SODIUM DR 25 MG TABLET PO SCH ×2 (08:31→18:43)
[2017-04-03] MEDS: ESCITALOPRAM 20 MG TABLET PO SCH (08:32)
[2017-04-03] MEDS: LIDOCAINE 5% PATCH TOP SCH (08:32)
[2017-04-03] MEDS: RANITIDINE 150 MG TABLET PO SCH ×2 (08:33→21:45)
[2017-04-03] MEDS: POLYETHYL GLYCOL 3350 17gm PACKET PO SCH (08:33)
--- NOTE | 2017-04-03 12:27 | Neuropsych Progress Note ---
[facility] Subjective Date: 04/03/17 - Sujective/Severity of Illness Medications: Acetaminophen (Tylenol) 325 - 650 mg PO Q5H PRN PRN Reason: Discomfort Last Admin: 04/02/17 10:45 Dose: 650 mg Hydrocodone Bitart/Acetaminophen (Sperry 5/325) 1 tab PO Q4H PRN PRN Reason: right knee Pain Last Admin: 04/03/17 02:03 Dose: 1 tab Bisacodyl (Dulcolax) 10 mg PO DAILY PRN PRN Reason: Constipation Last Admin: 03/29/17 11:16 Dose: 10 mg Bisacodyl (Dulcolax) 10 mg RECTALLY DAILY PRN PRN Reason: Constipation Last Admin: 03/27/17 08:16 Dose: 10 mg Clonidine HCl (Catapres) 0.1 mg PO NOON [facility] Last Admin: 04/03/17 12:24 Dose: 0.1 mg Diclofenac Sodium (Voltaren) 50 mg PO BIDWM [facility] Last Admin: 04/03/17 08:31 Dose: 50 mg Escitalopram Oxalate (Lexapro) 20 mg PO DAILY [facility] Last Admin: 04/03/17 08:32 Dose: 20 mg Haloperidol (Haldol) 0.5 mg PO Q6H PRN PRN Reason: Extreme agitation Haloperidol Lactate (Haldol) 0.5 mg IM Q6H PRN PRN Reason: Extreme agitation Lidocaine (Lidoderm) 1 patch TOP DAILY [facility] Last Admin: 04/03/17 08:32 Dose: 1 patch Lidocaine HCl/Dextrose (Lidoderm Patch Removal) 1 removal TOP 2100 [facility] Last Admin: 04/02/17 22:11 Dose: 1 removal Lorazepam (Ativan Inj) 0.5 mg IM Q6H PRN PRN Reason: Extreme agitation Lorazepam (Ativan) 0.5 mg PO Q6H PRN PRN Reason: Extreme agitation Last Admin: 04/01/17 06:29 Dose: 0.5 mg Lorazepam (Ativan) 0.5 mg PO HS [facility] Last Admin: 04/02/17 22:10 Dose: 0.5 mg Magnesium Hydroxide (Mom) 30 ml PO DAILY PRN PRN Reason: Constipation Last Admin: 03/28/17 14:40 Dose: 30 ml Metoprolol Tartrate (Lopressor) 25 mg PO BIDWM [facility] Last Admin: 04/03/17 08:31 Dose: 25 mg Polyethylene Glycol (Miralax) 17 gm PO DAILY [facility] Last Admin: 04/03/17 08:33 Dose: 17 gm Ranitidine HCl (Zantac) 150 mg PO BID [facility] Last Admin: 04/03/17 08:33 Dose: 150 mg Simvastatin (Zocor) 20 mg PO [facility] Last Admin: 04/02/17 22:09 Dose: 20 mg Trazodone HCl (Desyrel) 50 mg PO [facility] Last Admin: 04/02/17 22:08 Dose: 50 mg Subjective: Pt seen and chart examined. Nursing reports pt is doing well. Sleeping well and has a good appetite. On face to face the pt states she is feeling better. Mood continues to improve and anxiety is improving. Still some issues staying asleep. Denies S/I. Tolerating meds Start Time: 11:30 Stop Time: 11:45 Mental Status Exam Vitals: Last Vital Signs Temp 97.0 F 04/03/17 08:00 Pulse 74 04/03/17 08:00 Resp 18 04/03/17 08:00 BP 128/67 04/03/17 08:00 Pulse Ox 99 04/03/17 08:00 Height: 1.68 m Weight: 66 kg - Mental Status Exam Muscle Strength/Tone: Normal Dressing: Casual Grooming: Good Attitude: Cooperative Motor Activity: Retardation Eye Contact: Fair Speech: Slowed Volume: Soft Rhythm: Appropriate Rhythm Orientation: Oriented X4 Mood: Depressed Rate of Thoughts: Appropriate Rate, Delayed Thought Organization: Organized Associations: Intact Abstract Reasoning: Intact, able to abstract Thought Content: Normal, Helplessness Perception/Psychotic: Perception Normal Language: Naming Intact Fund of Knowledge: Appropriate Memory: Grossly Intact Suicidal Ideation: Intermittent Homicidal Ideation: None Insight: Poor Judgement: Poor Impulse Control: Poor - Laboratory Result Diagrams: 03/25/17 16:07 03/30/17 07:55 Assessment and Plan (1) Major depressive disorder, recurrent episode with anxious distress Problem details: Severe Current visit: Yes Status: Acute Hospital Course Summary Disclaimer: The visit summary below is not to be considered part of the above Progress Note. Hospital Course: Assessment Anxiety Depression Hyponatremia-POA Anemia, unspecified Hypertension Palpitations Hyperlipidemia Osteoarthritis- Right Knee pain currently IBS 03/26/17-hospitalist consult Agree with [facility] admission for psychiatric treatment of her depression and anxiety. Continue home medicines for her hypertension and hyperlipidemia. Tylenol is not controlling her knee pain. She is taking diclofenac routinely. Order given for Lidoderm patches and Sperry prn. Regarding her anemia, previous hemoglobin on 03/15/17 was 12.9. Will recheck a CBC and continue to follow. Will start ranitidine for GI prophylaxis given that she is on the diclofenac. Assuming she is not dropping significantly during her stay, this can be worked up outpatient. Repeat BMP tomorrow to follow-up on sodium levels. Sodium level on 03/15/17 was 129, but in 2012 was 141. This could be related to her SSRI. Given her palpitations, will check a TSH. Last record of TSH that I could find was 2012. It was normal at 3.5. We will continue to follow patient throughout her stay. Thank you for the consult. Patient's care to be returned to Dr. Flash Harvey on discharge. 03/26/17 18:17 Pt improving. Continue current care 03/27/17 10:50 Pt continues to improve. Continues to have some anxiety and depression. Continue current care 03/28/17 11:40 Anxiety and depression improving. Continue current care 03/29/17 18:51 Continues to improve. Continue current care 03/30/17 BMP rechecked - Na improved to 135. Pt admits to chronic hyponatremia. Ca improved to 8.6. TSH was low-normal at 0.6. VS stable although some lability to BP despite Metoprolol. No bradycardia. Psych notes reviewed - no changes. Defer insomnia treatment to Dr. Marinelli. 03/30/17 18:50 Some insomnia and anxiety. D/C Trazodone and start Ativan 0.5mg at HS 03/31/17 18:00 Continues to have anxiety but improved. Continue current care 04/01/17 19:24 Some issues with sleep. Trazodone 50mg PO QHS 04/02/17 18:47 Improved. Denies S/I. Continue current care 04/03/17 12:26 Continues to improve. Continue current care
[2017-04-03] MEDS: TRAZODONE 50 MG TABLET PO SCH (21:45)
[2017-04-03] MEDS: LORazepam 0.5 MG TABLET PO SCH (21:45)
[2017-04-03] MEDS: SIMVASTATIN 20 MG TABLET PO SCH (21:45)
[2017-04-03] MEDS: LIDOCAINE PATCH REMOVAL TOP SCH (21:45)
[2017-04-04] MEDS: HYDROCODONE/APAP 5mg/325mg TABLET PO PRN ×2 (03:32→20:20)
[2017-04-04] MEDS: LORazepam 0.5 MG TABLET PO PRN (07:03)
[2017-04-04] MEDS: LIDOCAINE 5% PATCH TOP SCH (09:05)
[2017-04-04] MEDS: DICLOFENAC SODIUM DR 25 MG TABLET PO SCH ×2 (09:14→18:51)
[2017-04-04] MEDS: RANITIDINE 150 MG TABLET PO SCH ×2 (09:15→22:17)
[2017-04-04] MEDS: ESCITALOPRAM 20 MG TABLET PO SCH (09:15)
[2017-04-04] MEDS: POLYETHYL GLYCOL 3350 17gm PACKET PO SCH (09:16)
--- NOTE | 2017-04-04 12:23 | Neuropsych Progress Note ---
[facility] Subjective Date: 04/04/17 - Sujective/Severity of Illness Medications: Acetaminophen (Tylenol) 325 - 650 mg PO Q5H PRN PRN Reason: Discomfort Last Admin: 04/02/17 10:45 Dose: 650 mg Hydrocodone Bitart/Acetaminophen (Stout 5/325) 1 tab PO Q4H PRN PRN Reason: right knee Pain Last Admin: 04/04/17 03:32 Dose: 1 tab Bisacodyl (Dulcolax) 10 mg PO DAILY PRN PRN Reason: Constipation Last Admin: 03/29/17 11:16 Dose: 10 mg Bisacodyl (Dulcolax) 10 mg RECTALLY DAILY PRN PRN Reason: Constipation Last Admin: 03/27/17 08:16 Dose: 10 mg Clonidine HCl (Catapres) 0.1 mg PO NOON [facility] Last Admin: 04/04/17 12:06 Dose: 0.1 mg Diclofenac Sodium (Voltaren) 50 mg PO BIDWM [facility] Last Admin: 04/04/17 09:14 Dose: 50 mg Escitalopram Oxalate (Lexapro) 20 mg PO DAILY [facility] Last Admin: 04/04/17 09:15 Dose: 20 mg Haloperidol (Haldol) 0.5 mg PO Q6H PRN PRN Reason: Extreme agitation Haloperidol Lactate (Haldol) 0.5 mg IM Q6H PRN PRN Reason: Extreme agitation Lidocaine (Lidoderm) 1 patch TOP DAILY [facility] Last Admin: 04/04/17 09:05 Dose: 1 patch Lidocaine HCl/Dextrose (Lidoderm Patch Removal) 1 removal TOP 2100 [facility] Last Admin: 04/03/17 21:45 Dose: 1 removal Lorazepam (Ativan Inj) 0.5 mg IM Q6H PRN PRN Reason: Extreme agitation Lorazepam (Ativan) 0.5 mg PO Q6H PRN PRN Reason: Extreme agitation Last Admin: 04/04/17 07:03 Dose: 0.5 mg Lorazepam (Ativan) 0.5 mg PO HS [facility] Last Admin: 04/03/17 21:45 Dose: 0.5 mg Magnesium Hydroxide (Mom) 30 ml PO DAILY PRN PRN Reason: Constipation Last Admin: 03/28/17 14:40 Dose: 30 ml Metoprolol Tartrate (Lopressor) 25 mg PO BIDWM [facility] Last Admin: 04/04/17 09:15 Dose: 25 mg Polyethylene Glycol (Miralax) 17 gm PO DAILY [facility] Last Admin: 04/04/17 09:16 Dose: 17 gm Ranitidine HCl (Zantac) 150 mg PO BID [facility] Last Admin: 04/04/17 09:15 Dose: 150 mg Simvastatin (Zocor) 20 mg PO HS [facility] Last Admin: 04/03/17 21:45 Dose: 20 mg Trazodone HCl (Desyrel) 50 mg PO [facility] Last Admin: 04/03/17 21:45 Dose: 50 mg Subjective: Pt seen and chart examined. Nursing reports pt is doing well. Sleeping well and has a good appetite. Pt received Ativan this AM for anxiety. On face to face the pt states she is doing well. She states she continues to have some anxiety at times but feels the Ativan is helpful. She requested scheduled Ativan but we discussed its addictive nature and this global technical writer encouraged her to use coping skills to deal with anxiety which pt was in agreement with. She denies any S/I. Reports her mood is improved. Tolerating meds Start Time: 12:00 Stop Time: 12:15 Mental Status Exam Vitals: Last Vital Signs Temp 97.6 F 04/04/17 08:00 Pulse 72 04/04/17 08:00 Resp 16 04/04/17 08:00 BP 125/67 04/04/17 08:00 Pulse Ox 97 04/04/17 08:00 Height: 1.68 m Weight: 66 kg - Mental Status Exam Muscle Strength/Tone: Normal Dressing: Casual Grooming: Good Attitude: Cooperative Motor Activity: Retardation Eye Contact: Fair Speech: Slowed Volume: Soft Rhythm: Appropriate Rhythm Orientation: Oriented X4 Mood: Depressed Rate of Thoughts: Appropriate Rate, Delayed Thought Organization: Organized Associations: Intact Abstract Reasoning: Intact, able to abstract Thought Content: Normal, Helplessness Perception/Psychotic: Perception Normal Language: Naming Intact Fund of Knowledge: Appropriate Memory: Grossly Intact Suicidal Ideation: Intermittent Homicidal Ideation: None Insight: Poor Judgement: Poor Impulse Control: Poor - Laboratory Result Diagrams: 03/25/17 16:07 03/30/17 07:55 Assessment and Plan (1) Major depressive disorder, recurrent episode with anxious distress Problem details: Severe Current visit: Yes Status: Acute Hospital Course Summary Disclaimer: The visit summary below is not to be considered part of the above Progress Note. Hospital Course: Assessment Anxiety Depression Hyponatremia-POA Anemia, unspecified Hypertension Palpitations Hyperlipidemia Osteoarthritis- Right Knee pain currently IBS 03/26/17-hospitalist consult Agree with [facility] admission for psychiatric treatment of her depression and anxiety. Continue home medicines for her hypertension and hyperlipidemia. Tylenol is not controlling her knee pain. She is taking diclofenac routinely. Order given for Lidoderm patches and Stout prn. Regarding her anemia, previous hemoglobin on 03/15/17 was 12.9. Will recheck a CBC and continue to follow. Will start ranitidine for GI prophylaxis given that she is on the diclofenac. Assuming she is not dropping significantly during her stay, this can be worked up outpatient. Repeat BMP tomorrow to follow-up on sodium levels. Sodium level on 03/15/17 was 129, but in 2012 was 141. This could be related to her SSRI. Given her palpitations, will check a TSH. Last record of TSH that I could find was 2012. It was normal at 3.5. We will continue to follow patient throughout her stay. Thank you for the consult. Patient's care to be returned to Dr. Flash Harvey on discharge. 03/26/17 18:17 Pt improving. Continue current care 03/27/17 10:50 Pt continues to improve. Continues to have some anxiety and depression. Continue current care 03/28/17 11:40 Anxiety and depression improving. Continue current care 03/29/17 18:51 Continues to improve. Continue current care 03/30/17 BMP rechecked - Na improved to 135. Pt admits to chronic hyponatremia. Ca improved to 8.6. TSH was low-normal at 0.6. VS stable although some lability to BP despite Metoprolol. No bradycardia. Psych notes reviewed - no changes. Defer insomnia treatment to Dr. Marinelli. 03/30/17 18:50 Some insomnia and anxiety. D/C Trazodone and start Ativan 0.5mg at HS 03/31/17 18:00 Continues to have anxiety but improved. Continue current care 04/01/17 19:24 Some issues with sleep. Trazodone 50mg PO QHS 04/02/17 18:47 Improved. Denies S/I. Continue current care 04/03/17 12:26 Continues to improve. Continue current care 04/04/17 12:23 Some anxiety at times but improved. Continue current care
[2017-04-04] MEDS: LIDOCAINE PATCH REMOVAL TOP SCH (22:00)
[2017-04-04] MEDS: TRAZODONE 50 MG TABLET PO SCH (22:17)
[2017-04-04] MEDS: LORazepam 0.5 MG TABLET PO SCH (22:17)
[2017-04-04] MEDS: SIMVASTATIN 20 MG TABLET PO SCH (22:17)
[2017-04-05] MEDS: HYDROCODONE/APAP 5mg/325mg TABLET PO PRN ×3 (02:58→21:35)
[2017-04-05] MEDS: DICLOFENAC SODIUM DR 25 MG TABLET PO SCH ×2 (08:06→18:42)
[2017-04-05] MEDS: LIDOCAINE 5% PATCH TOP SCH (08:07)
[2017-04-05] MEDS: ESCITALOPRAM 20 MG TABLET PO SCH (08:07)
[2017-04-05] MEDS: POLYETHYL GLYCOL 3350 17gm PACKET PO SCH (08:07)
[2017-04-05] MEDS: RANITIDINE 150 MG TABLET PO SCH ×2 (08:07→21:34)
--- NOTE | 2017-04-05 21:27 | Neuropsych Progress Note ---
[facility] Subjective Date: 04/05/17 - Sujective/Severity of Illness Medications: Acetaminophen (Tylenol) 325 - 650 mg PO Q5H PRN PRN Reason: Discomfort Last Admin: 04/02/17 10:45 Dose: 650 mg Hydrocodone Bitart/Acetaminophen ([place] 5/325) 1 tab PO Q4H PRN PRN Reason: right knee Pain Last Admin: 04/05/17 13:22 Dose: 1 tab Bisacodyl (Dulcolax) 10 mg PO DAILY PRN PRN Reason: Constipation Last Admin: 03/29/17 11:16 Dose: 10 mg Bisacodyl (Dulcolax) 10 mg RECTALLY DAILY PRN PRN Reason: Constipation Last Admin: 03/27/17 08:16 Dose: 10 mg Clonidine HCl (Catapres) 0.1 mg PO NOON [facility] Last Admin: 04/05/17 12:29 Dose: 0.1 mg Diclofenac Sodium (Voltaren) 50 mg PO BIDWM [facility] Last Admin: 04/05/17 18:42 Dose: 50 mg Escitalopram Oxalate (Lexapro) 20 mg PO DAILY [facility] Last Admin: 04/05/17 08:07 Dose: 20 mg Haloperidol (Haldol) 0.5 mg PO Q6H PRN PRN Reason: Extreme agitation Haloperidol Lactate (Haldol) 0.5 mg IM Q6H PRN PRN Reason: Extreme agitation Lidocaine (Lidoderm) 1 patch TOP DAILY [facility] Last Admin: 04/05/17 08:07 Dose: 1 patch Lidocaine HCl/Dextrose (Lidoderm Patch Removal) 1 removal TOP 2100 [facility] Last Admin: 04/04/17 22:00 Dose: 1 removal Lorazepam (Ativan Inj) 0.5 mg IM Q6H PRN PRN Reason: Extreme agitation Lorazepam (Ativan) 0.5 mg PO Q6H PRN PRN Reason: Extreme agitation Last Admin: 04/04/17 07:03 Dose: 0.5 mg Lorazepam (Ativan) 0.5 mg PO [facility] Last Admin: 04/04/17 22:17 Dose: 0.5 mg Magnesium Hydroxide (Mom) 30 ml PO DAILY PRN PRN Reason: Constipation Last Admin: 03/28/17 14:40 Dose: 30 ml Metoprolol Tartrate (Lopressor) 25 mg PO BIDWM [facility] Last Admin: 04/05/17 18:42 Dose: 25 mg Polyethylene Glycol (Miralax) 17 gm PO DAILY [facility] Last Admin: 04/05/17 08:07 Dose: 17 gm Ranitidine HCl (Zantac) 150 mg PO BID [facility] Last Admin: 04/05/17 08:07 Dose: 150 mg Simvastatin (Zocor) 20 mg PO HS [facility] Last Admin: 04/04/17 22:17 Dose: 20 mg Trazodone HCl (Desyrel) 50 mg PO [facility] Last Admin: 04/04/17 22:17 Dose: 50 mg Subjective: Pt seen and chart examined. Nursing reports pt is doing well. Sleeping well and has a good appetite. On face to face the pt states she is doing well. mood is stable. Some anxiety at times but improved. Denies S/I or psychosis. Tolerating meds. Feels safe for D/C Start Time: 18:00 Stop Time: 18:15 Mental Status Exam Vitals: Last Vital Signs Temp 97.7 F 04/05/17 16:00 Pulse 57 L 04/05/17 16:00 Resp 16 04/05/17 16:00 BP 116/63 04/05/17 16:00 Pulse Ox 99 04/05/17 16:00 Height: 1.68 m Weight: 66 kg - Mental Status Exam Muscle Strength/Tone: Normal Dressing: Casual Grooming: Good Attitude: Cooperative Motor Activity: Retardation Eye Contact: Fair Speech: Slowed Volume: Soft Rhythm: Appropriate Rhythm Orientation: Oriented X4 Mood: Depressed Rate of Thoughts: Appropriate Rate, Delayed Thought Organization: Organized Associations: Intact Abstract Reasoning: Intact, able to abstract Thought Content: Normal, Helplessness Perception/Psychotic: Perception Normal Language: Naming Intact Fund of Knowledge: Appropriate Memory: Grossly Intact Suicidal Ideation: Intermittent Homicidal Ideation: None Insight: Poor Judgement: Poor Impulse Control: Poor - Laboratory Result Diagrams: 04/05/17 07:11 04/05/17 07:11 Laboratory Results - last 24 hr 04/05/17 04/05/17 04/05/17 07:11 07:11 09:39 WBC 4.0 L RBC 3.69 L Hgb 11.1 L Hct 33.6 L MCV 91.1 MCH 30.1 MCHC 33.0 RDW Std Deviation 39.1 Plt Count 347 MPV 8.9 L Immature Gran % (Auto) 0.5 Neut % (Auto) 53.5 Lymph % (Auto) 28.1 [place] % (Auto) 15.2 H Eos % (Auto) 1.7 Baso % (Auto) 1.0 Neut # (Auto) 2.2 Lymph # (Auto) 1.1 [place] # (Auto) 0.6 Eos # (Auto) 0.1 Baso # (Auto) 0.0 Abs Immat Gran (auto) 0.02 Turbidity < 20 Sodium 134 Potassium 5.0 Chloride 99 Carbon Dioxide 31 H Anion Gap 4 L BUN 17.0 Creatinine 0.9 GFR Calculation 61 BUN/Creatinine Ratio 19 Glucose 98 Calculated Osmolality 260 L Calcium 8.9 Icterus Index < 2 Specimen Hemolysis < 15 Ur Collection Type Urine, clean catch Urine Color Yellow Urine Clarity Clear Urine pH 7.5 Ur Specific [place] 1.015 Urine Protein Negative Urine Glucose (UA) Negative Urine Ketones Negative Urine Occult Blood Negative Urine Nitrate Negative Urine Bilirubin Negative Urine Urobilinogen 0.2 Ur Leukocyte Esterase Negative Urinalysis Comment Microscopic not ind. Assessment and Plan (1) Major depressive disorder, recurrent episode with anxious distress Problem details: Severe Current visit: Yes Status: Acute Hospital Course Summary Disclaimer: The visit summary below is not to be considered part of the above Progress Note. Hospital Course: Assessment Anxiety Depression Hyponatremia-POA Anemia, unspecified Hypertension Palpitations Hyperlipidemia Osteoarthritis- Right Knee pain currently IBS 03/26/17-hospitalist consult Agree with [facility] admission for psychiatric treatment of her depression and anxiety. Continue home medicines for her hypertension and hyperlipidemia. Tylenol is not controlling her knee pain. She is taking diclofenac routinely. Order given for Lidoderm patches and [place] prn. Regarding her anemia, previous hemoglobin on 03/15/17 was 12.9. Will recheck a CBC and continue to follow. Will start ranitidine for GI prophylaxis given that she is on the diclofenac. Assuming she is not dropping significantly during her stay, this can be worked up outpatient. Repeat BMP tomorrow to follow-up on sodium levels. Sodium level on 03/15/17 was 129, but in 2012 was 141. This could be related to her SSRI. Given her palpitations, will check a TSH. Last record of TSH that I could find was 2012. It was normal at 3.5. We will continue to follow patient throughout her stay. Thank you for the consult. Patient's care to be returned to Dr. Flash Harvey on discharge. 03/26/17 18:17 Pt improving. Continue current care 03/27/17 10:50 Pt continues to improve. Continues to have some anxiety and depression. Continue current care 03/28/17 11:40 Anxiety and depression improving. Continue current care 03/29/17 18:51 Continues to improve. Continue current care 03/30/17 BMP rechecked - Na improved to 135. Pt admits to chronic hyponatremia. Ca improved to 8.6. TSH was low-normal at 0.6. VS stable although some lability to BP despite Metoprolol. No bradycardia. Psych notes reviewed - no changes. Defer insomnia treatment to Dr. Marinelli. 03/30/17 18:50 Some insomnia and anxiety. D/C Trazodone and start Ativan 0.5mg at HS 03/31/17 18:00 Continues to have anxiety but improved. Continue current care 04/01/17 19:24 Some issues with sleep. Trazodone 50mg PO QHS 04/02/17 18:47 Improved. Denies S/I. Continue current care 04/03/17 12:26 Continues to improve. Continue current care 04/04/17 12:23 Some anxiety at times but improved. Continue current care 04/05/17 21:27 Doing well. Plan D/C tomorrow
[2017-04-05] MEDS: LIDOCAINE PATCH REMOVAL TOP SCH (21:34)
[2017-04-05] MEDS: SIMVASTATIN 20 MG TABLET PO SCH (21:34)
[2017-04-05] MEDS: LORazepam 0.5 MG TABLET PO SCH (21:34)
[2017-04-05] MEDS: TRAZODONE 50 MG TABLET PO SCH (21:34)
--- NOTE | 2017-04-05 21:38 | Discharge Instructions ---
Discharge Plan - Med Rec/Dispo Referrals/Follow Up: Flash Corcoran MD [Other] (Dr. Robb Corcoran on 04/14/17 at 9:15 am for Hosp. follow-up. . [place] [phone] Patient's PCP will manage Mental Health needs at this time.) Additional Instructions: Discharge Diagnosis: Major Neurocognitive Disorder Reasons for Admission: Anxiety and depression IN CASE OF PSYCHIATRIC EMERGENCY, CONTACT [facility] STAFF AT [phone] ( available 24 hrs daily). Prescriptions: New Escitalopram [Lexapro] 20 mg PO DAILY #30 tab LORazepam [Ativan] 0.5 mg PO HS #30 tablet Trazodone [Desyrel] 50 mg PO HS #30 tab Continue Trazodone [Desyrel] 50 mg PO HS Discontinued Escitalopram [Lexapro] 10 mg PO DAILY diphenhydrAMINE HCl [Zzzquil] 25 mg PO HS PRN PRN Reason: Insomnia No Action Simvastatin [Zocor] 20 mg PO DAILY #0 Metoprolol Tartrate [Lopressor] 25 mg PO BID Diclofenac Sodium 50 mg PO BID Cholecalciferol (Vitamin D3) [Vitamin D3] 1,000 unit PO DAILY cloNIDine HCl [Clonidine HCl] 0.1 mg PO NOON #0 Cyclobenzaprine [Flexeril] 10 mg PO TID PRN PRN Reason: Prn Orders Fish Oil/Dha/Epa [Fish Oil 1,200 mg Fish Oil] 1 cap PO DAILY Discharge Instructions/Outpatient Orders: Provider Discharge Instructions Location: Determined By Patient - Disposition 01 Discharged Home, Self-Care
[2017-04-05 23:03] VITALS: O2SAT 96
[2017-04-06] MEDS: ACETAMINOPHEN 325 MG TABLET PO PRN (00:35)
[2017-04-06] MEDS: HYDROCODONE/APAP 5mg/325mg TABLET PO PRN ×2 (04:08→13:10)
--- NOTE | 2017-04-06 08:04 | Discharge Instructions ---
Discharge Plan - Med Rec/Dispo Referrals/Follow Up: Flash Corcoran MD [Other] (Dr. Robb Corcoran on 04/14/17 at 9:15 am for Hosp. follow-up. . [place] [phone] Patient's PCP will manage Mental Health needs at this time.) Additional Instructions: Discharge Diagnosis: Major Neurocognitive Disorder Reasons for Admission: Anxiety and depression IN CASE OF PSYCHIATRIC EMERGENCY, CONTACT [facility] AT [phone] ( available 24 hrs daily). HOSPITALIST CONCERNS: Patient had mild but stable normocytic anemia. Ranitidine was started as GI prophylaxis since she was on Diclofenac. H2 britni was not continued at discharge d/t potentially inappropriate medication per Beer's criteria. Recommend f/u with PCP to determine whether further w/u on anemia should be done. Prescriptions: New Escitalopram [Lexapro] 20 mg PO DAILY #30 tab LORazepam [Ativan] 0.5 mg PO HS #30 tablet Trazodone [Desyrel] 50 mg PO HS #30 tab PEG 3350 17gm PACKET [Miralax] 17 gm PO DAILY PRN packet PRN Reason: Constipation Continue Simvastatin [Zocor] 20 mg PO DAILY #0 Metoprolol Tartrate [Lopressor] 25 mg PO BID Diclofenac Sodium 50 mg PO BID Trazodone [Desyrel] 50 mg PO HS Cholecalciferol (Vitamin D3) [Vitamin D3] 1,000 unit PO DAILY cloNIDine HCl [Clonidine HCl] 0.1 mg PO NOON #0 Cyclobenzaprine [Flexeril] 10 mg PO TID PRN PRN Reason: Prn Orders Fish Oil/Dha/Epa [Fish Oil 1,200 mg Fish Oil] 1 cap PO DAILY Discontinued Escitalopram [Lexapro] 10 mg PO DAILY diphenhydrAMINE HCl [Zzzquil] 25 mg PO HS PRN PRN Reason: Insomnia Discharge Instructions/Outpatient Orders: Provider Discharge Instructions Location: Determined By Patient
[2017-04-06] MEDS: LIDOCAINE 5% PATCH TOP SCH (08:34)
[2017-04-06] MEDS: DICLOFENAC SODIUM DR 25 MG TABLET PO SCH (08:34)
[2017-04-06] MEDS: ESCITALOPRAM 20 MG TABLET PO SCH (08:35)
[2017-04-06] MEDS: POLYETHYL GLYCOL 3350 17gm PACKET PO SCH (08:35)
[2017-04-06] MEDS: RANITIDINE 150 MG TABLET PO SCH (08:35)
[2017-04-06 09:15] VITALS: BP 124/65; PULSE 71; RESP 16; TEMP 97.5
== END 2017-04-06 13:45 | disposition home or self-care (01) | DRG 885 ==
LOC: ED 15:29 → GEN 16:56
PROVIDERS: ADMIT Psychiatry & Neurology Psychiatry; ATTEND Psychiatry & Neurology Psychiatry